=== PATIENT | female | born 1950 | race Caucasian/White ===

== ENCOUNTER 2023-03-07 07:00 | Outpatient (CLI) | payer MEDICARE, OTHER | END 2023-03-07 23:59 | disposition home or self-care (01) | LOC: LAB.S 07:00 | PROVIDERS: ATTEND Physician Assistant Medical | DX: N39.0 Urinary tract infection, site not specified (principal) | CPT/HCPCS: 87086 ==

== ENCOUNTER 2023-03-13 21:25 | Emergency (ER) | payer MEDICARE ==
--- NOTE | 2023-03-13 22:03 | ED Physician Documentation ---
History of Present Illness - Stated complaint Stated Complaint: FEM - Chief complaint Chief Complaint: Abd Pain - Additonal information Additional information: With inability to urinate. Has been unable to urinate x1 day. Reports several months history of generalized weakness and numbness for which she has been seen with a doctor at the [facility]. Reports has not followed regularly with her primary care doctor however because "he is too busy". Denies any fever, chills, chest pain, shortness of breath, abdominal pain, back pain,. Review of Systems Constitutional: denies: Fever Eyes: denies: Loss of vision Ears: denies: Loss of hearing Nose: denies: Rhinorrhea / runny nose Throat: denies: Dental pain / toothache Cardiac: denies: Chest pain / pressure Respiratory: denies: Dyspnea GI: denies: Abdominal Pain : reports: Dysuria, Frequency Skin: denies: Rash Musculoskeletal: denies: Neck pain Neurologic: denies: Generalized weakness Psychiatric: denies: Depressed PD PAST MEDICAL HISTORY - Past Medical History Musculoskeletal: Fibromyalgia - Past Surgical History Past Surgical History: No - Present Medications Home Medications: Ambulatory Orders Medication Instructions Recorded Confirmed Amitriptyline [Elavil] 10 mg 04/12/15 04/12/15 Valacyclovir HCl [Valacyclovir] 1,000 mg PO TID #20 tablet 04/12/15 cephALEXin [Cephalexin] 500 mg PO TID #20 tablet 04/12/15 predniSONE [Deltasone] 60 mg PO DAILY 10 Days tablet 04/12/15 - Allergies Allergies/Adverse Reactions: Allergies Allergy/AdvReac Type Severity Reaction Status Date / Time Penicillins Allergy Anaphylaxis Verified 04/12/15 14:21 shellfish derived Allergy Unknown Verified 04/12/15 14:21 - Social History Does the pt smoke?: No Smoking Status: Never smoker Does the pt drink ETOH?: No Does the pt have substance abuse?: No - Immunizations Immunizations are current?: No PD ED PE NORMAL - Vitals Vital signs reviewed: Yes - General General: Alert and oriented X 3, No acute distress - HEENT HEENT: Atraumatic, PERRL - Neck Neck: Supple, no meningeal sign, No JVD - Cardiac Cardiac: RRR, No murmur - Respiratory Respiratory: No respiratory distress - Abdomen Abdomen: Normal bowel sounds, Soft - Female Female : Deferred - Back Back: No CVA TTP - Neuro Neuro: Alert and oriented X 3, veterans' counselor 2-12 intact, No motor deficit, No sensory deficit, Normal speech - Psych Psych: Other (Labile affect) Results - Vitals Vitals: Vital Signs - 24 hr 03/13/23 03/13/23 21:51 23:53 Temperature 36.4 C L Heart Rate 83 74 Respiratory 18 16 Rate Blood Pressure 193/103 H 195/85 H O2 Saturation 95 100 Oxygen O2 Source Room air - Labs Labs: Laboratory Tests 03/13/23 03/13/23 03/13/23 22:11 22:11 22:11 WBC 6.7 RBC 5.28 Hgb 14.2 Hct 43.4 MCV 82.2 MCH 26.9 L MCHC 32.7 RDW 13.3 Plt Count 350 MPV 9.4 Neut # (Auto) 3.9 Lymph # (Auto) 2.2 [place] # (Auto) 0.5 Eos # (Auto) 0.1 Baso # (Auto) 0.1 Absolute Nucleated RBC 0.00 Nucleated RBC % 0.0 ESR 1 Sodium 140 Potassium 3.5 Chloride 106 Carbon Dioxide 25 Anion Gap 9.0 BUN 11 Creatinine 0.7 Estimated GFR (MDRD) 82 L Glucose 103 H Calcium 9.1 Total Bilirubin 0.6 AST 20 ALT 15 Alkaline Phosphatase 61 Total Protein 7.5 Albumin 4.4 Globulin 3.1 Albumin/Globulin Ratio 1.4 Lipase 33 Urine Color Urine Clarity Urine pH Ur Specific [place] Urine Protein Urine Glucose (UA) Urine Ketones Urine Occult Blood Urine Nitrite Urine Bilirubin Urine Urobilinogen Ur Leukocyte Esterase Ur Microscopic Review Urine Culture Comments 03/13/23 23:51 WBC RBC Hgb Hct MCV MCH MCHC RDW Plt Count MPV Neut # (Auto) Lymph # (Auto) [place] # (Auto) Eos # (Auto) Baso # (Auto) Absolute Nucleated RBC Nucleated RBC % ESR Sodium Potassium Chloride Carbon Dioxide Anion Gap BUN Creatinine Estimated GFR (MDRD) Glucose Calcium Total Bilirubin AST ALT Alkaline Phosphatase Total Protein Albumin Globulin Albumin/Globulin Ratio Lipase Urine Color YELLOW Urine Clarity CLEAR Urine pH 6.0 Ur Specific [place] 1.010 Urine Protein NEGATIVE Urine Glucose (UA) NEGATIVE Urine Ketones 15 H Urine Occult Blood NEGATIVE Urine Nitrite NEGATIVE Urine Bilirubin NEGATIVE Urine Urobilinogen 0.2 (NORMAL) Ur Leukocyte Esterase NEGATIVE Ur Microscopic Review NOT INDICATED Urine Culture Comments NOT INDICATED PD Medical Decision Making - ED course Complexity details: reviewed old records, reviewed results, re-evaluated patient, considered differential, d/w patient, d/w family ED course: Patient 72-year-old female presenting to the emergency department with painful urination and total body numbness. Afebrile, he medically stable on arrival to the emergency department. Benign abdominal exam with no suprapubic tenderness. Initial bladder scan demonstrates approximately 200 cc. Labs obtained all generally within normal limits or nonactionable. CT head is considered although patient does not have any focal or lateralizing neurologic deficits. Atypical demyelinating processes are considered given the patient's total body numbness however she reports that this has been ongoing for several months and is unchanged without any a sending or descending weakness that would be of concern for things such as Charles Salgado variant Guillain-Bacon. ESR negative. Patient was given a liter of IV hydration and was escorted to the bathroom by nursing staff. She was reportedly able to urinate however upon returning to her room she complained excessively of feeling as though her bladder was immediately full again. On reevaluation she was demonstrating some signs of confusion about how she had gotten into the emergency department and whom she had seen so far however she remained alert and orientated to person place and time. At her request Cates catheter was placed however she immediately began to complain of severe bladder pain and demanded its removal. I had a discussion with the patient's who is present at bedside. He reports that she has been experiencing Similar symptoms for several months. He did report periodic episodes of confusion at home. This is consistent with dementia with behavioral disturbance. Patient and patient's were offered boarding here in the emergency department for discussion with social work however patient adamantly refused this and reported that he felt comfortable going home stating that that was a safe environment with which she was familiar and that he would follow-up with her primary care doctor. She was encouraged to return for any new or worsening symptoms. Departure - Departure Disposition: 01 Home, Self Care Clinical Impression: Dysuria Altered mental status Qualifiers: Altered mental status type: unspecified Qualified Code(s): R41.82 - Altered mental status, unspecified Comments: Thank you for allowing us to care for you today at [facility]. Today in the emergency department your evaluated for any possible life- threatening medical emergency. The testing performed in the emergency department today including her blood work and urine analysis was reassuring. At your request we provided with a Cates catheter however you were intolerant to this and we took this out also at your request. I am concerned because you do appear to be demonstrating some symptoms concerning for dementia as with behavioral disturbance. You were offered hospitalization which you have adamantly refused. I want you to follow-up with your primary care doctor soon as possible concerning the symptoms. Please return to the emergency department for new or worsening symptoms.
[2023-03-13 22:16] LABS: BASOPHILS # (AUTO) 0.1 10^3/uL (0.0-0.1); EOSINOPHILS # (AUTO) 0.1 10^3/uL (0.0-0.7); EOSINOPHILS % (AUTO) 1.3 %; HCT - HEMATOCRIT 43.4 % (37.0-47.0); HGB - HEMOGLOBIN 14.2 g/dL (12.0-16.0); LYMPHOCYTES # (AUTO) 2.2 10^3/uL (1.5-3.5); LYMPHOCYTES % (AUTO) 32.2 %; MEAN CORPUSCULAR HEMOGLOBIN 26.9 pg (27.0-31.0); MEAN CORPUSCULAR HGB CONC 32.7 g/dL (32.0-36.0); MEAN CORPUSCULAR VOLUME 82.2 fL (81.0-99.0); MEAN PLATELET VOLUME 9.4 fL (7.9-10.8); MONOCYTES # (AUTO) 0.5 10^3/uL (0.0-1.0); MONOCYTES % (AUTO) 7.3 %; NEUTROPHILS # (AUTO) 3.9 10^3/uL (1.5-6.6); NEUTROPHILS % (AUTO) 57.9 %; PLT - PLATELET COUNT 350 10^3/uL (130-450); RED BLOOD COUNT 5.28 10^6/uL (4.20-5.40); RED CELL DISTRIBUTION WIDTH 13.3 % (12.0-15.0); WHITE BLOOD COUNT 6.7 x10^3/uL (4.8-10.8)
[2023-03-13] MEDS ORDERED: SODIUM CHLORIDE 0.9% 1,000 ML IV STA (22:16)
[2023-03-13 22:27] LABS: ALBUMIN 4.4 g/dL (3.2-5.5); ALBUMIN/GLOBULIN RATIO 1.4 (1.0-2.2); BILIRUBIN,TOTAL 0.6 mg/dL (0.2-1.0); CALCIUM 9.1 mg/dL (8.5-10.3); CREATININE 0.7 mg/dL (0.4-1.0); POTASSIUM 3.5 mmol/L (3.5-5.0); TOTAL PROTEIN 7.5 g/dL (6.7-8.2)
[2023-03-14 00:01] VITALS: BP 195/85
[2023-03-14 00:19] LABS: BILIRUBIN,URINE NEGATIVE (NEGATIVE); GLUCOSE, URINE (UA) NEGATIVE (NEGATIVE); KETONES,URINE (UA) 15 mg/dL (NEGATIVE); LEUKOCYTE ESTERASE, URINE NEGATIVE (NEGATIVE); NITRITE,URINE NEGATIVE (NEGATIVE); OCCULT BLOOD,URINE NEGATIVE (NEGATIVE); PROTEIN,URINE NEGATIVE (NEGATIVE); UROBILINOGEN,URINE 0.2 (NORMAL) E.U./dL (NORMAL)
[2023-03-14 00:20] LABS: CLARITY,URINE CLEAR (CLEAR)
== END 2023-03-14 00:52 | disposition home or self-care (01) ==
LOC: ED 21:25
DX: R30.0 Dysuria (principal); R41.82 Altered mental status, unspecified
CPT/HCPCS: 36415; 51702; 51798; 80053; 81001; 81003; 83690; 85025; 85651; 87086; 99283

== ENCOUNTER 2023-04-02 20:36 | Emergency (ER) | payer MEDICARE ==
--- NOTE | 2023-04-02 20:58 | ED Physician Documentation ---
History of Present Illness - Stated complaint Stated Complaint: FEMALE - Chief complaint Chief Complaint: General - History obtained from History obtained from: Patient - Additonal information Additional information: 72-year-old woman with mild dementia has a uterine prolapse and has intermittent trouble with urinary retention. She is here because she cannot pee. She was seen by my partner, Dr. Montenegro 11 days ago for similar complaint and a Cates was placed. Its not clear why the Cates is not in now. PD PAST MEDICAL HISTORY - Past Medical History Cardiovascular: Hypertension Neuro: Dementia Musculoskeletal: Fibromyalgia - Past Surgical History Past Surgical History: No - Present Medications Home Medications: Ambulatory Orders Medication Instructions Recorded Confirmed Amitriptyline [Elavil] 10 mg 04/12/15 04/12/15 Valacyclovir HCl [Valacyclovir] 1,000 mg PO TID #20 tablet 04/12/15 cephALEXin [Cephalexin] 500 mg PO TID #20 tablet 04/12/15 predniSONE [Deltasone] 60 mg PO DAILY 10 Days tablet 04/12/15 - Allergies Allergies/Adverse Reactions: Allergies Allergy/AdvReac Type Severity Reaction Status Date / Time Penicillins Allergy Anaphylaxis Verified 03/22/23 22:26 shellfish derived Allergy Unknown Verified 03/22/23 22:26 - Social History Does the pt smoke?: No Smoking Status: Never smoker Does the pt drink ETOH?: No Does the pt have substance abuse?: No - Immunizations Immunizations are current?: No - POLST Patient has POLST: No PD ED PE NORMAL - Vitals Vital signs reviewed: Yes - General General: Other (She is alert and oriented to person and place but not date. Some short-term memory difficulties.) - Abdomen Abdomen: Normal bowel sounds, Soft, Non tender Results - Vitals Vitals: Vital Signs - 24 hr 04/02/23 20:37 Temperature 36.5 C Heart Rate 91 Respiratory 19 Rate Blood Pressure 164/90 H O2 Saturation 100 Oxygen O2 Source Room air PD Medical Decision Making - ED course ED course: Independent history from the who is her main caregiver. She pulled out the catheter herself. They tried getting the supplies for self cathing but just could not get the hang of it. A Cates was placed with good urine output. Departure - Departure Disposition: 01 Home, Self Care Clinical Impression: Acute urinary retention Condition: Good Record reviewed to determine appropriate education?: Yes Instructions: ED Catheter Care Cates Comments: Do not pull the catheter out. Follow-up as you are already planning with both your primary and your specialist at [facility].
[2023-04-02 22:06] VITALS: BP 158/82
== END 2023-04-02 22:01 | disposition home or self-care (01) ==
LOC: ED 20:36
DX: R33.9 Retention of urine, unspecified (principal); N81.4 Uterovaginal prolapse, unspecified; F03.90 Unspecified dementia, unspecified severity, without behavioral disturbance, psychotic disturbance, mood disturbance, and anxiety; I10 Essential (primary) hypertension; Z79.899 Other long term (current) drug therapy
CPT/HCPCS: 36415; 51702; 51798; 80048; 99283

== ENCOUNTER 2023-04-03 04:41 | Outpatient (CLI) | payer MEDICARE | END 2023-04-03 23:59 | disposition critical access hospital (66) | LOC: EMS 04:41 | DX: T83.84XA Pain due to genitourinary prosthetic devices, implants and grafts, initial encounter (principal) | CPT/HCPCS: A0425; A0429 ==

== ENCOUNTER 2023-04-03 05:21 | Emergency (ER) | payer MEDICARE ==
--- NOTE | 2023-04-03 05:31 | ED Physician Documentation ---
History of Present Illness - Stated complaint Stated Complaint: CATHETER DISPLACEMENT - History obtained from History obtained from: Patient - Additonal information Additional information: 72yF with pmh dementia, uterine prolapse, urinary retention over the past month with 4 ed visits for this, presents requesting we remove her everett catheter placed yesterday evening. she states it's too uncomfortable. denies other symptoms PD PAST MEDICAL HISTORY - Past Medical History Cardiovascular: Hypertension Neuro: Dementia Musculoskeletal: Fibromyalgia - Past Surgical History Past Surgical History: No - Present Medications Home Medications: Ambulatory Orders Medication Instructions Recorded Confirmed Amitriptyline [Elavil] 10 mg 04/12/15 04/12/15 Valacyclovir HCl [Valacyclovir] 1,000 mg PO TID #20 tablet 04/12/15 cephALEXin [Cephalexin] 500 mg PO TID #20 tablet 04/12/15 predniSONE [Deltasone] 60 mg PO DAILY 10 Days tablet 04/12/15 - Allergies Allergies/Adverse Reactions: Allergies Allergy/AdvReac Type Severity Reaction Status Date / Time Penicillins Allergy Anaphylaxis Verified 03/22/23 22:26 shellfish derived Allergy Unknown Verified 03/22/23 22:26 - Social History Does the pt smoke?: No Smoking Status: Never smoker Does the pt drink ETOH?: No Does the pt have substance abuse?: No - Immunizations Immunizations are current?: No - POLST Patient has POLST: No PD ED PE NORMAL - Vitals Vital signs reviewed: Yes - General General: No acute distress, Well developed/nourished, Other (alert and oriented) - HEENT HEENT: Atraumatic, PERRL, EOMI - Abdomen Abdomen: Non tender, Non distended - Female Female : Other (everett catheter in place with straw colored urine in bag) - Derm Derm: Normal color, Warm and dry Results - Vitals Vitals: Oxygen O2 Source Room air PD Medical Decision Making - ED course ED course: 72yF presents for the fourth time this month due to urinary issues, requesting removal of everett catheter. We explained that she may be unable to void properly without it and she understands and is insistent it be removed. She will f/u with pcp for self cath education and materials and I also recommend urology or urogynecology. return precautions given. Departure - Departure Disposition: Home, Self Care Clinical Impression: Everett catheter problem Condition: Stable Instructions: ED Retention Urinary Female Follow-Up: Jacinta Stephens MD [Physician No Access] - Comments: You were seen in the ED for removal of your everett catheter. If you are unable to urinate properly when you return home then you will need to have a new everett placed. This is important because you can have damage to your kidneys with urinary retention. Please follow up with your primary care provider for self cath materials and education. A referral to urology has been provided.
[2023-04-03 06:20] VITALS: BP 170/94
== END 2023-04-03 05:42 | disposition home or self-care (01) ==
LOC: EDUNIT# → ED 05:21
DX: Z46.6 Encounter for fitting and adjustment of urinary device (principal); I10 Essential (primary) hypertension; F03.90 Unspecified dementia, unspecified severity, without behavioral disturbance, psychotic disturbance, mood disturbance, and anxiety
CPT/HCPCS: 99281; 99282

== ENCOUNTER 2023-04-09 07:00 | Outpatient (CLI) | payer MEDICARE ==
[2023-04-09 20:49] LABS: BILIRUBIN,URINE NEGATIVE (NEGATIVE); GLUCOSE, URINE (UA) NEGATIVE (NEGATIVE); KETONES,URINE (UA) NEGATIVE (NEGATIVE); LEUKOCYTE ESTERASE, URINE NEGATIVE (NEGATIVE); NITRITE,URINE NEGATIVE (NEGATIVE); OCCULT BLOOD,URINE TRACE-INTA (NEGATIVE); PROTEIN,URINE NEGATIVE (NEGATIVE); UROBILINOGEN,URINE 0.2 (NORMAL) E.U./dL (NORMAL)
[2023-04-09 20:53] LABS: CLARITY,URINE CLEAR (CLEAR)
[2023-04-09 21:08] LABS: BACTERIA,URINE Few /HPF (None Seen); RBC,URINE 0-5 /HPF (0-5); SQUAMOUS EPITHELIAL CELL,UR FEW Squamous (<= Few)
== END 2023-04-09 23:59 | disposition home or self-care (01) ==
LOC: LAB.S 07:00
PROVIDERS: ATTEND Emergency Medicine
DX: R33.9 Retention of urine, unspecified (principal)
CPT/HCPCS: 81001; 87086

== ENCOUNTER 2023-04-14 19:51 | Outpatient (CLI) | payer MEDICARE | END 2023-04-14 19:52 | disposition short-term general hospital (02) | LOC: EMS 19:51 | DX: N93.9 Abnormal uterine and vaginal bleeding, unspecified (principal); N81.4 Uterovaginal prolapse, unspecified; R10.31 Right lower quadrant pain; R10.32 Left lower quadrant pain; R42 Dizziness and giddiness; R20.0 Anesthesia of skin; R55 Syncope and collapse | CPT/HCPCS: A0425; A0429 ==

== ENCOUNTER 2023-05-02 18:30 | Emergency (ER) | payer MEDICARE ==
--- NOTE | 2023-05-02 19:31 | ED Physician Documentation ---
PD HPI ABD PAIN - Stated complaint Stated Complaint: - Chief complaint Chief Complaint: Abd Pain - History obtained from History obtained from: Patient - Additional information Additional information: 72-year-old with dementia presents with abdominal pain and inability to urinate. Review of the chart shows that she has a history of pelvic organ prolapse and has recurrent urinary retention. She has somewhat frequent visits related to same. She is quite demented and her is not available on initial evaluation, I am told he is in the waiting room and I have asked him to come back. PD PAST MEDICAL HISTORY - Past Medical History Cardiovascular: Hypertension Neuro: Dementia Musculoskeletal: Fibromyalgia - Past Surgical History Past Surgical History: No - Present Medications Home Medications: Ambulatory Orders Medication Instructions Recorded Confirmed Amitriptyline [Elavil] 10 mg 04/12/15 04/12/15 Valacyclovir HCl [Valacyclovir] 1,000 mg PO TID #20 tablet 04/12/15 cephALEXin [Cephalexin] 500 mg PO TID #20 tablet 04/12/15 predniSONE [Deltasone] 60 mg PO DAILY 10 Days tablet 04/12/15 Tamsulosin [Flomax] 0.4 mg PO DAILY #14 cap 04/18/23 - Allergies Allergies/Adverse Reactions: Allergies Allergy/AdvReac Type Severity Reaction Status Date / Time Penicillins Allergy Anaphylaxis Verified 05/02/23 18:40 shellfish derived Allergy Unknown Verified 05/02/23 18:40 - Social History Does the pt smoke?: No Smoking Status: Never smoker Does the pt drink ETOH?: No Does the pt have substance abuse?: No - Immunizations Immunizations are current?: No - POLST Patient has POLST: No PD ED PE NORMAL - Vitals Vital signs reviewed: Yes - General General: No acute distress, Other (She is alert but clearly demented with poor short-term memory. She is also anxious.) - Abdomen Abdomen: Normal bowel sounds, Soft, Non tender - Extremities Extremities: No edema, No calf tenderness / cord - Neuro Eye Opening: Spontaneous Motor: Obeys Commands Verbal: Confused GCS Score: 14 Results - Vitals Vitals: Vital Signs - 24 hr 05/02/23 05/02/23 18:40 20:15 Temperature 36.5 C Heart Rate 78 64 Respiratory 16 15 Rate Blood Pressure 141/78 H 150/75 H O2 Saturation 95 95 Oxygen O2 Source Room air - Labs Labs: Laboratory Tests 05/02/23 05/02/23 19:46 19:46 WBC 9.3 RBC 5.00 Hgb 13.3 Hct 42.0 MCV 84.0 MCH 26.6 L MCHC 31.7 L RDW 14.1 Plt Count 344 MPV 10.0 Neut # (Auto) 5.6 Lymph # (Auto) 2.4 [place] # (Auto) 0.9 Eos # (Auto) 0.3 Baso # (Auto) 0.1 Absolute Nucleated RBC 0.00 Nucleated RBC % 0.0 Sodium 141 Potassium 3.3 L Chloride 106 Carbon Dioxide 30 Anion Gap 5.0 L BUN 12 Creatinine 0.7 Estimated GFR (MDRD) 82 L Glucose 108 H Calcium 9.4 Total Bilirubin 0.3 AST 14 ALT 11 Alkaline Phosphatase 52 Total Protein 6.2 L Albumin 4.0 Globulin 2.2 Albumin/Globulin Ratio 1.8 - Rads (name of study) CT abdomen pelvis Relevant Findings:: Final report received, EMP independent interpretation of test PD Medical Decision Making - ED course ED course: I brought the into the room. She has been losing weight and started to have this concern about cancer over the last few weeks. Based on the fact that she has been losing weight and lumps in her belly. She has not had imaging yet. 72-year-old with dementia is very worried about having an intra-abdominal cancer. She does have recurrent urinary retention and a Cates was placed and that did help, but to allay her fears especially given her advanced age and weight loss a CT was done with no evidence of malignancy. CBC, CMP grossly normal. Departure - Departure Disposition: 01 Home, Self Care Clinical Impression: Fear of having malignant neoplasm of digestive system, Acute urinary retention, Weight loss Condition: Good Record reviewed to determine appropriate education?: Yes Instructions: ED Catheter Care Cates Comments: Rest assured there is no sign of cancer or other serious abdominal process or mass on your CAT scan. Follow-up with your primary care physician, next a vailable appointment. Return for new or worsening symptoms. Forms: PCP List
[2023-05-02 20:06] LABS: BASOPHILS # (AUTO) 0.1 10^3/uL (0.0-0.1); BASOPHILS % (AUTO) 0.9 %; EOSINOPHILS # (AUTO) 0.3 10^3/uL (0.0-0.7); EOSINOPHILS % (AUTO) 2.8 %; HGB - HEMOGLOBIN 13.3 g/dL (12.0-16.0); LYMPHOCYTES # (AUTO) 2.4 10^3/uL (1.5-3.5); LYMPHOCYTES % (AUTO) 26.2 %; MEAN CORPUSCULAR HEMOGLOBIN 26.6 pg (27.0-31.0); MEAN CORPUSCULAR HGB CONC 31.7 g/dL (32.0-36.0); MONOCYTES # (AUTO) 0.9 10^3/uL (0.0-1.0); MONOCYTES % (AUTO) 9.3 %; NEUTROPHILS # (AUTO) 5.6 10^3/uL (1.5-6.6); NEUTROPHILS % (AUTO) 60.6 %; PLT - PLATELET COUNT 344 10^3/uL (130-450); RED CELL DISTRIBUTION WIDTH 14.1 % (12.0-15.0); WHITE BLOOD COUNT 9.3 x10^3/uL (4.8-10.8)
[2023-05-02 20:21] LABS: ALBUMIN/GLOBULIN RATIO 1.8 (1.0-2.2); BILIRUBIN,TOTAL 0.3 mg/dL (0.2-1.0); CALCIUM 9.4 mg/dL (8.5-10.3); CREATININE 0.7 mg/dL (0.6-1.3); POTASSIUM 3.3 mmol/L (3.5-4.5); TOTAL PROTEIN 6.2 g/dL (6.4-8.9)
[2023-05-02] MEDS ORDERED: iohexoL-300 100 ML VIAL IVP ONE (21:29)
--- NOTE | 2023-05-02 21:43 | CT Report ---
PROCEDURE: ABDOMEN/PELVIS W INDICATIONS: IV only, abd bloat CONTRAST: 100 ML OMNI 300 TECHNIQUE: After the administration of intravenous contrast, 5 mm thick sections acquired from the diaphragms to the symphysis. 5 mm thick coronal and sagittal reformats were acquired. For radiation dose reducti on, the following was used: automated exposure control, adjustment of mA and/or kV according to tobin ent size. COMPARISON: None FINDINGS: Image quality: Excellent. Lung bases and heart: Mild cardiomegaly with left ventricular and left atrial enlargement. No pericar dial effusion identified. Lung bases are clear. Liver: No solid mass. Gallbladder and biliary tree: No radiopaque stones or wall thickening. No biliary dilation. Spleen: No splenomegaly. Pancreas: No pancreatic ductal dilation. Adrenals: No adrenal nodule. Kidneys and ureters: No hydronephrosis. No renal cystic lesion which requires follow up. No solid mas s. Bowel and peritoneum: No bowel distension. No pathologic free fluid. Lymph nodes: No central or retroperitoneal adenopathy. Vessels: No infrarenal aortic aneurysm. PELVIS Reproductive organs: Unremarkable. Bladder: There is a Cates catheter present in the bladder. There is extensive air present in the blad julita, presumably secondary to Cates catheter placement. The bladder has a thin wall. Pelvic lymph nodes: No pelvic adenopathy by size criteria. Bones: No aggressive osseous abnormality. Other: No significant ventral or inguinal hernia. IMPRESSION: 1. A Cates catheter is present in the bladder. Extensive air in the bladder is presumed secondary to Cates catheter placement. The bladder has a thin wall. 2. No other findings suspicious for acute abdominal process. 3. Mild cardiomegaly. Reviewed by: Javier Em MD on 05/02/2023 9:42 PM PDT Approved by: Javier Em MD on 05/02/2023 9:42 PM PDT Station ID: [id number]
[2023-05-02 22:04] VITALS: BP 164/85; O2SAT 98
== END 2023-05-02 22:11 | disposition home or self-care (01) ==
LOC: ED 18:30
DX: R33.9 Retention of urine, unspecified (principal); R63.4 Abnormal weight loss; F03.90 Unspecified dementia, unspecified severity, without behavioral disturbance, psychotic disturbance, mood disturbance, and anxiety; I10 Essential (primary) hypertension; Z79.899 Other long term (current) drug therapy
CPT/HCPCS: 36415; 51702; 74177; 80053; 85025; 99283; 99284; Q9967

== ENCOUNTER 2023-05-11 14:54 | Emergency (ER) | payer MEDICARE ==
[2023-05-11 15:05] VITALS: O2SAT 98
--- NOTE | 2023-05-11 16:01 | ED Physician Documentation ---
PD HPI ABD PAIN - Stated complaint Stated Complaint: ,DIZZINESS - Chief complaint Chief Complaint: Abd Pain - History obtained from History obtained from: Patient PD PAST MEDICAL HISTORY - Past Medical History Past Medical History: Yes Cardiovascular: Hypertension Neuro: Dementia Musculoskeletal: Fibromyalgia - Past Surgical History Past Surgical History: No - Present Medications Home Medications: Ambulatory Orders Medication Instructions Recorded Confirmed Amitriptyline [Elavil] 10 mg 04/12/15 04/12/15 Valacyclovir HCl [Valacyclovir] 1,000 mg PO TID #20 tablet 04/12/15 cephALEXin [Cephalexin] 500 mg PO TID #20 tablet 04/12/15 predniSONE [Deltasone] 60 mg PO DAILY 10 Days tablet 04/12/15 Tamsulosin [Flomax] 0.4 mg PO DAILY #14 cap 04/18/23 Phenazopyridine HCl [Pyridium] 100 mg PO TID PRN #15 tablet 05/11/23 - Allergies Allergies/Adverse Reactions: Allergies Allergy/AdvReac Type Severity Reaction Status Date / Time Penicillins Allergy Anaphylaxis Verified 05/11/23 14:59 shellfish derived Allergy Unknown Verified 05/11/23 14:59 - Social History Does the pt smoke?: No Smoking Status: Never smoker Does the pt drink ETOH?: No Does the pt have substance abuse?: No - Immunizations Immunizations are current?: No - POLST Patient has POLST: No Results - Vitals Vitals: Vital Signs - 24 hr 05/11/23 05/11/23 14:59 17:05 Temperature 36.5 C Heart Rate 80 78 Respiratory 16 16 Rate Blood Pressure 128/78 128/75 O2 Saturation 98 98 Oxygen O2 Source Room air - Labs Labs: Laboratory Tests 05/11/23 16:48 Urine Color YELLOW Urine Clarity HAZY Urine pH 6.0 Ur Specific [place] <=1.005 Urine Protein NEGATIVE Urine Glucose (UA) NEGATIVE Urine Ketones NEGATIVE Urine Occult Blood SMALL H Urine Nitrite NEGATIVE Urine Bilirubin NEGATIVE Urine Urobilinogen 0.2 (NORMAL) Ur Leukocyte Esterase SMALL H Urine RBC 0-5 Urine WBC 4-5 Ur Squamous Epith Cells NONE SEEN Urine Bacteria Rare Ur Microscopic Review INDICATED Urine Culture Comments INDICATED PD Medical Decision Making - ED course Complexity details: considered differential (she states she is having unusual lower abd bladder area pin as well as outer periurethral after adjusting the everett catheter in and out (she says it seemed "too long" and so pushed some back into bladder. She is concerned about created infection. ), d/w patient ED course: ED nursing changed her everett as she was concerned about created infection when pushed everett further into bladder. Per nursing, no external rash nor sores/redness. Everett changed out with concern of being infected and to help patient be calmer about it (anxious she did "something wrong"). I think she just created some urethral irritation with the adjusting of it several times. I discusssed with her the length of the everett out is appropriate as the everett cannot be "cut to size" as she was requesting. Has had penitentiary everett, so it seems unusual that she was hving this perception of it. It appears in proper postion and leg back has clear appearing urine. Everett changed to new one by nursing and is draining fine. This helped patient be less anxious about the manipulation she had done as possible created infection. No apparent infection though on UA. Cant ry anti-inflammatories and Pyridium for symptoms. Nursing said no external lesions/rash/sores when changed everett. Departure - Departure Disposition: 01 Home, Self Care Clinical Impression: Dysuria, Urinary catheter insertion/adjustment/removal Condition: Stable Record reviewed to determine appropriate education?: Yes Prescriptions: Phenazopyridine HCl [Pyridium] 100 mg PO TID PRN #15 tablet PRN Reason: Abdominal Pain Comments: Your urine does not look obviously infected by the urine test. We will do a culture and see if that results differently. At this point I believe the discomfort is from irritation of the urethra from movement of the tubing. We can try phenazopyridine and see if that helps with some of the urinary discomfort in the bladder and urethra. It will turn your urine will orange- colored and so not to be concerned. Meanwhile some Tylenol 4 times daily may help with some of the discomfort as well. The Everett catheter was replaced here show his fresh and clean. Leave it in the position that it is. It is common for there to be some extension of the catheter out externally as it is long enough that it would not all be within the bladder. I sent a prescription to your preferred pharmacy. Forms: PCP List Discharge Date/Time: 05/11/23 17:15
[2023-05-11] MEDS ORDERED: ACETAMINOPHEN 325 MG TABLET PO STA (16:15)
[2023-05-11] MEDS ORDERED: PHENAZOPYRIDINE 100 MG TABLET PO STA (16:52)
[2023-05-11 16:57] LABS: BILIRUBIN,URINE NEGATIVE (NEGATIVE); CLARITY,URINE HAZY (CLEAR); GLUCOSE, URINE (UA) NEGATIVE (NEGATIVE); KETONES,URINE (UA) NEGATIVE (NEGATIVE); LEUKOCYTE ESTERASE, URINE SMALL (NEGATIVE); NITRITE,URINE NEGATIVE (NEGATIVE); OCCULT BLOOD,URINE SMALL (NEGATIVE); PROTEIN,URINE NEGATIVE (NEGATIVE); UROBILINOGEN,URINE 0.2 (NORMAL) E.U./dL (NORMAL)
[2023-05-11 17:06] LABS: BACTERIA,URINE Rare /HPF (None Seen); RBC,URINE 0-5 /HPF (0-5); SQUAMOUS EPITHELIAL CELL,UR NONE SEEN (<= Few)
[2023-05-11 17:07] VITALS: BP 128/75
--- NOTE | 2023-05-14 11:45 | ED Physician Documentation ---
ED Addendum - Addendum Addendum: 05/14/23 11:45 Polymicrobial low-volume growth in a patient with a chronic indwelling Cates more consistent with colonization and her culture from 05/11 is reviewed and I do not think it requires any intervention or antibiotics.
== END 2023-05-11 17:15 | disposition home or self-care (01) ==
LOC: ED 14:54
DX: R30.0 Dysuria (principal); I10 Essential (primary) hypertension; Z79.899 Other long term (current) drug therapy
CPT/HCPCS: 51702; 81001; 87077; 87086; 87181; 99283; A9270; 81003

== ENCOUNTER 2023-05-12 18:15 | Emergency (ER) | payer MEDICARE ==
[2023-05-12 18:31] VITALS: O2SAT 98
--- NOTE | 2023-05-12 18:43 | ED Physician Documentation ---
History of Present Illness - Stated complaint Stated Complaint: CATHETER BROKE - Chief complaint Chief Complaint: General - History obtained from History obtained from: Patient, Family - Additonal information Additional information: 72-year-old with dementia presents by POV with her . She is convinced her catheter is not working. She has a chronic indwelling Cates. Independent history taken from the . She has started some psychiatric medications as she has been having delusions about her catheter and having cancer despite no evidence of that on prior visits. She is going to be seeing a urologist. PD PAST MEDICAL HISTORY - Past Medical History Cardiovascular: Hypertension Neuro: Dementia Musculoskeletal: Fibromyalgia - Past Surgical History Past Surgical History: No - Present Medications Home Medications: Ambulatory Orders Medication Instructions Recorded Confirmed Amitriptyline [Elavil] 10 mg 04/12/15 04/12/15 Valacyclovir HCl [Valacyclovir] 1,000 mg PO TID #20 tablet 04/12/15 cephALEXin [Cephalexin] 500 mg PO TID #20 tablet 04/12/15 predniSONE [Deltasone] 60 mg PO DAILY 10 Days tablet 04/12/15 Tamsulosin [Flomax] 0.4 mg PO DAILY #14 cap 04/18/23 Phenazopyridine HCl [Pyridium] 100 mg PO TID PRN #15 tablet 05/11/23 - Allergies Allergies/Adverse Reactions: Allergies Allergy/AdvReac Type Severity Reaction Status Date / Time Penicillins Allergy Anaphylaxis Verified 05/12/23 18:26 shellfish derived Allergy Unknown Verified 05/12/23 18:26 - Social History Does the pt smoke?: No Smoking Status: Never smoker Does the pt drink ETOH?: No Does the pt have substance abuse?: No - Immunizations Immunizations are current?: No - POLST Patient has POLST: No PD ED PE NORMAL - Vitals Vital signs reviewed: Yes - General General: Other (Anxious but in no distress) - Abdomen Abdomen: Non tender - Female Female : Other (Cates catheter in place, it is draining clear yellow urine. She does need a new StatLock.) Results - Vitals Vitals: Vital Signs - 24 hr 05/12/23 18:26 Temperature 36.8 C Heart Rate 73 Respiratory 16 Rate Blood Pressure 116/74 O2 Saturation 98 Oxygen O2 Source Room air PD Medical Decision Making - ED course ED course: 72-year-old woman concerned about her catheter not working but it seems to be working fine. She did need a new StatLock. Departure - Departure Disposition: 01 Home, Self Care Clinical Impression: Cates catheter problem Qualifiers: Encounter type: initial encounter Qualified Code(s): T83.9XXA - Unspecified complication of genitourinary prosthetic device, implant and graft, initial encounter Condition: Good Record reviewed to determine appropriate education?: Yes Instructions: ED Catheter Care Cates Comments: Your catheter is working okay, follow-up with the urologist as is being planned. Return for new or worsening symptoms.
[2023-05-12 19:07] VITALS: BP 120/71
== END 2023-05-12 19:07 | disposition home or self-care (01) ==
LOC: ED 18:15
DX: T83.091A Other mechanical complication of indwelling urethral catheter, initial encounter (principal)
CPT/HCPCS: 99281; 99283

== ENCOUNTER 2023-05-15 08:47 | Emergency (ER) | payer MEDICARE ==
[2023-05-15 09:08] VITALS: BP 136/85; O2SAT 96
--- NOTE | 2023-05-15 09:44 | ED Physician Documentation ---
History of Present Illness - Stated complaint Stated Complaint: CATH ISSUE - Chief complaint Chief Complaint: General - History obtained from History obtained from: Patient, Family - Additonal information Additional information: The patient is brought to the emergency department by her for chief complaint of catheter malfunction. She states the catheter has been draining fine but the tubing is too long and the bag loop has broken. The patient gives a long and somewhat rambling history of ongoing pelvic pain that is longstanding but seems to be worse since the catheter was put in. She is very unhappy with the catheter but states that she has seen urology and gynecology and they are not willing to do a bladder lift for her at this point in time. states the patient has already had a urinalysis and CT scan this week and that at this point, he just mainly wants to see if the tubing for the catheter can be shortened so that it is not levering at an auto angle. They would also like a bag replacement. The patient denies fevers or chills. No nausea or vomiting. No blood in urine. When she had a urinalysis the other day in [place], the results were not back yet but the patient was started on antibiotics and Pyridium. The patient has some degree of memory loss per her , so most of the history is obtained from him. PD PAST MEDICAL HISTORY - Past Medical History Cardiovascular: Hypertension Neuro: Dementia Musculoskeletal: Fibromyalgia - Past Surgical History Past Surgical History: No - Present Medications Home Medications: Ambulatory Orders Medication Instructions Recorded Confirmed Amitriptyline [Elavil] 10 mg 04/12/15 04/12/15 Valacyclovir HCl [Valacyclovir] 1,000 mg PO TID #20 tablet 04/12/15 cephALEXin [Cephalexin] 500 mg PO TID #20 tablet 04/12/15 predniSONE [Deltasone] 60 mg PO DAILY 10 Days tablet 04/12/15 Tamsulosin [Flomax] 0.4 mg PO DAILY #14 cap 04/18/23 Phenazopyridine HCl [Pyridium] 100 mg PO TID PRN #15 tablet 05/11/23 - Allergies Allergies/Adverse Reactions: Allergies Allergy/AdvReac Type Severity Reaction Status Date / Time Penicillins Allergy Anaphylaxis Verified 05/12/23 18:26 shellfish derived Allergy Unknown Verified 05/12/23 18:26 - Social History Does the pt smoke?: No Smoking Status: Never smoker Does the pt drink ETOH?: No Does the pt have substance abuse?: No - Immunizations Immunizations are current?: No - POLST Patient has POLST: No PD ED PE NORMAL - Vitals Vital signs reviewed: Yes - General General: No acute distress, Well developed/nourished, Other (Alert, answering questions.) - HEENT HEENT: Atraumatic, PERRL, EOMI, Moist mucous membranes - Neck Neck: Supple, no meningeal sign - Cardiac Cardiac: RRR, No murmur, Strong equal pulses - Respiratory Respiratory: No respiratory distress, Clear bilaterally - Abdomen Abdomen: Soft, Non distended, Other (Mild suprapubic and right lower quadrant tenderness, no rebound or guarding.) - Derm Derm: Normal color, Warm and dry, No rash - Extremities Extremities: No deformity - Neuro Neuro: Alert and oriented X 3 - Psych Psych: Normal mood, Normal affect Results - Vitals Vitals: Vital Signs - 24 hr 05/15/23 08:52 Temperature 36.7 C Heart Rate 98 Respiratory 20 Rate Blood Pressure 136/85 H O2 Saturation 96 Oxygen O2 Source Room air PD Medical Decision Making - ED course Complexity details: considered differential, d/w patient, d/w family ED course: Staff did work with the patient and family on a new catheter tubing and bag set up. The patient has already been worked up with any testing that we would do here for her ongoing symptoms at this point, I have deferred to urology and [facility]. No emergent condition identified and patient is stable for discharge home. Departure - Departure Disposition: 01 Home, Self Care Clinical Impression: Cates catheter problem Qualifiers: Encounter type: initial encounter Qualified Code(s): T83.9XXA - Unspecified complication of genitourinary prosthetic device, implant and graft, initial encounter Condition: Stable Instructions: ED Catheter Care Cates Forms: PCP List Discharge Date/Time: 05/15/23 10:09
== END 2023-05-15 10:09 | disposition home or self-care (01) ==
LOC: ED 08:47
DX: T83.9XXA Unspecified complication of genitourinary prosthetic device, implant and graft, initial encounter (principal); I10 Essential (primary) hypertension
CPT/HCPCS: 99281; 99283

== ENCOUNTER 2023-05-20 08:00 | Outpatient (CLI) | payer MEDICARE | END 2023-05-20 23:59 | disposition home or self-care (01) | LOC: LAB.S 08:00 | PROVIDERS: ATTEND Physician Assistant | DX: N34.2 Other urethritis (principal) | CPT/HCPCS: 87086 ==

== ENCOUNTER 2023-10-24 14:20 | Outpatient (CLI) | payer MEDICARE | END 2023-10-24 14:21 | disposition critical access hospital (66) | LOC: EMS 14:20 | DX: R41.0 Disorientation, unspecified (principal); R20.0 Anesthesia of skin; R20.2 Paresthesia of skin; R51.9 Headache, unspecified; R45.89 Other symptoms and signs involving emotional state | CPT/HCPCS: A0425; A0429 ==

== ENCOUNTER 2023-10-24 14:55 | Emergency (ER) | payer MEDICARE ==
[2023-10-24] MEDS: LORazepam 2 MG/ML VIAL IVP STA (15:16)
[2023-10-24 15:18] LABS: BASOPHILS # (AUTO) 0.1 10^3/uL (0.0-0.1); BASOPHILS % (AUTO) 0.6 %; EOSINOPHILS # (AUTO) 0.2 10^3/uL (0.0-0.7); EOSINOPHILS % (AUTO) 1.5 %; HCT - HEMATOCRIT 46.5 % (37.0-47.0); HGB - HEMOGLOBIN 14.6 g/dL (12.0-16.0); LYMPHOCYTES # (AUTO) 2.2 10^3/uL (1.5-3.5); LYMPHOCYTES % (AUTO) 19.1 %; MEAN CORPUSCULAR HGB CONC 31.4 g/dL (32.0-36.0); MEAN CORPUSCULAR VOLUME 82.7 fL (81.0-99.0); MEAN PLATELET VOLUME 9.6 fL (7.9-10.8); MONOCYTES # (AUTO) 0.9 10^3/uL (0.0-1.0); MONOCYTES % (AUTO) 7.7 %; NEUTROPHILS # (AUTO) 8.2 10^3/uL (1.5-6.6); NEUTROPHILS % (AUTO) 70.8 %; PLT - PLATELET COUNT 364 10^3/uL (130-450); RED BLOOD COUNT 5.62 10^6/uL (4.20-5.40); RED CELL DISTRIBUTION WIDTH 13.4 % (12.0-15.0); WHITE BLOOD COUNT 11.5 x10^3/uL (4.8-10.8)
[2023-10-24 15:34] LABS: BILIRUBIN,URINE NEGATIVE (NEGATIVE); GLUCOSE, URINE (UA) NEGATIVE (NEGATIVE); KETONES,URINE (UA) NEGATIVE (NEGATIVE); LEUKOCYTE ESTERASE, URINE TRACE (NEGATIVE); NITRITE,URINE POSITIVE (NEGATIVE); OCCULT BLOOD,URINE NEGATIVE (NEGATIVE); PROTEIN,URINE NEGATIVE (NEGATIVE); UROBILINOGEN,URINE 0.2 (NORMAL) E.U./dL (NORMAL)
[2023-10-24 15:36] LABS: ALBUMIN 4.3 g/dL (3.2-5.5); ALBUMIN/GLOBULIN RATIO 1.7 (1.0-2.2); BILIRUBIN,TOTAL 0.6 mg/dL (0.2-1.0); CALCIUM 9.8 mg/dL (8.5-10.3); CREATININE 0.7 mg/dL (0.6-1.3); POTASSIUM 3.8 mmol/L (3.5-4.5); TOTAL PROTEIN 6.8 g/dL (6.4-8.9)
--- NOTE | 2023-10-24 15:42 | CT Report ---
PROCEDURE: Head WO INDICATIONS: headache, numbness, hypertension TECHNIQUE: Noncontrast 4.5 mm thick angled axial sections acquired from the foramen magnum to the vertex. For r adiation dose reduction, the following was used: automated exposure control, adjustment of mA and/or kV according to patient size. COMPARISON: 04/12/2015 FINDINGS: Image quality: Excellent. CSF spaces: Basal cisterns are patent. No extra-axial fluid collections. Ventricles are normal in size and shape. Brain: No midline shift. No intracranial masses or hemorrhage. Acevedo-white matter interface is norm al. Skull and face: Calvarium and visualized facial bones are intact, without suspicious lesions. Sinuses: Visualized sinuses and mastoids are clear. IMPRESSION: No acute intracranial pathology. Reviewed by: Alber Harden MD on 10/24/2023 2:41 PM [place] Approved by: Alber Harden MD on 10/24/2023 2:41 PM [facility] Station ID: [id number]
[2023-10-24 15:44] LABS: CLARITY,URINE HAZY (CLEAR)
[2023-10-24 15:45] LABS: BACTERIA,URINE Many /HPF (None Seen); CRYSTALS,URINE 0-2 Calcium Oxalate /LPF; EPITHELIAL CELLS,UR FEW Transitional /HPF (<= Few); RBC,URINE 0-5 /HPF (0-5); SQUAMOUS EPITHELIAL CELL,UR FEW Squamous (<= Few)
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
[2023-10-24] MEDS: SODIUM CHLORIDE 0.9% 1,000 ML IV STA ×2 (16:09→17:29)
[2023-10-24] MEDS: cefTRIAXone 1 GM in SODIUM CHLORIDE 0.9% MINIBAG 100 ML IV STA (16:15)
[2023-10-24 18:08] VITALS: BP 126/71; O2SAT 97
== END 2023-10-24 18:15 | disposition home or self-care (01) ==
LOC: EDUNIT# → ED 14:55
DX: E86.0 Dehydration (principal); N30.00 Acute cystitis without hematuria; R41.0 Disorientation, unspecified; I10 Essential (primary) hypertension; F03.90 Unspecified dementia, unspecified severity, without behavioral disturbance, psychotic disturbance, mood disturbance, and anxiety; M79.7 Fibromyalgia; Z79.899 Other long term (current) drug therapy
CPT/HCPCS: 36415; 70450; 80053; 81001; 83690; 85025; 87086; 87181; 96361; 96365; 96375; 99284; J2060; 81003

== ENCOUNTER 2024-01-29 19:12 | Outpatient (CLI) | payer MEDICARE | END 2024-01-29 23:59 | disposition EMS.NT | LOC: EMS 19:12 | DX: R45.89 Other symptoms and signs involving emotional state (principal); R52 Pain, unspecified; R41.0 Disorientation, unspecified ==

== ENCOUNTER 2024-03-24 16:11 | Outpatient (CLI) | payer MEDICARE | END 2024-03-24 16:12 | disposition EMS.NT | LOC: EMS 16:11 | DX: R20.0 Anesthesia of skin (principal); R20.2 Paresthesia of skin ==

== ENCOUNTER 2024-03-29 20:41 | Emergency (ER) | payer MEDICARE ==
[2024-03-29 21:26] VITALS: BP 155/90; O2SAT 98
[2024-03-29 22:56] LABS: BASOPHILS # (AUTO) 0.1 10^3/uL (0.0-0.1); BASOPHILS % (AUTO) 0.6 %; EOSINOPHILS # (AUTO) 0.1 10^3/uL (0.0-0.7); EOSINOPHILS % (AUTO) 1.4 %; HCT - HEMATOCRIT 44.9 % (37.0-47.0); HGB - HEMOGLOBIN 14.1 g/dL (12.0-16.0); LYMPHOCYTES # (AUTO) 2.5 10^3/uL (1.5-3.5); LYMPHOCYTES % (AUTO) 25.7 %; MEAN CORPUSCULAR HEMOGLOBIN 26.4 pg (27.0-31.0); MEAN CORPUSCULAR HGB CONC 31.4 g/dL (32.0-36.0); MEAN CORPUSCULAR VOLUME 84.1 fL (81.0-99.0); MEAN PLATELET VOLUME 10.2 fL (7.9-10.8); MONOCYTES # (AUTO) 0.8 10^3/uL (0.0-1.0); MONOCYTES % (AUTO) 8.5 %; NEUTROPHILS # (AUTO) 6.3 10^3/uL (1.5-6.6); NEUTROPHILS % (AUTO) 63.6 %; PLT - PLATELET COUNT 369 10^3/uL (130-450); RED BLOOD COUNT 5.34 10^6/uL (4.20-5.40); RED CELL DISTRIBUTION WIDTH 13.2 % (12.0-15.0); WHITE BLOOD COUNT 9.9 x10^3/uL (4.8-10.8)
[2024-03-29 22:59] LABS: BILIRUBIN,URINE NEGATIVE (NEGATIVE); GLUCOSE, URINE (UA) NEGATIVE (NEGATIVE); KETONES,URINE (UA) TRACE mg/dL (NEGATIVE); LEUKOCYTE ESTERASE, URINE SMALL (NEGATIVE); NITRITE,URINE POSITIVE (NEGATIVE); OCCULT BLOOD,URINE NEGATIVE (NEGATIVE); PROTEIN,URINE NEGATIVE (NEGATIVE); UROBILINOGEN,URINE 0.2 (NORMAL) E.U./dL (NORMAL)
[2024-03-29 23:00] LABS: CLARITY,URINE HAZY (CLEAR)
[2024-03-29 23:05] LABS: BACTERIA,URINE Many /HPF (None Seen); RBC,URINE 0-5 /HPF (0-5); SQUAMOUS EPITHELIAL CELL,UR FEW Squamous (<= Few)
[2024-03-29 23:26] LABS: ALBUMIN 4.7 g/dL (3.2-5.5); BILIRUBIN,TOTAL 0.3 mg/dL (0.2-1.0); CREATININE 0.7 mg/dL (0.6-1.3); POTASSIUM 3.3 mmol/L (3.5-4.5)
[2024-03-30 00:06] LABS: B. PARAPERTUSSIS- RESP PCR PAN NOT DETECTED; B. PERTUSSIS- RESP PCR PANEL NOT DETECTED; C. PNEUMONIAE- RESP PCR PANEL NOT DETECTED; CORONAVIRUS 229E-RESP PCR NOT DETECTED; CORONAVIRUS HKU1-RESP PCR NOT DETECTED; CORONAVIRUS NL63-RESP PCR NOT DETECTED; CORONAVIRUS OC43-RESP PCR NOT DETECTED; HUMAN METAPNEUMOVIRUS NOT DETECTED; INFLUENZA A- RESP PCR PANEL NOT DETECTED; INFLUENZA B - RESP PCR PANEL NOT DETECTED; M. PNEUMONIAE- RESP PCR PANEL NOT DETECTED; PARAINFLUENZA VIRUS 1 NOT DETECTED; PARAINFLUENZA VIRUS 2 NOT DETECTED; PARAINFLUENZA VIRUS 3 NOT DETECTED; PARAINFLUENZA VIRUS 4 NOT DETECTED; RHINOVIRUS/ENTEROVIRUS NOT DETECTED; RSV- RESP PCR PANEL NOT DETECTED; SARS-CoV-2 -RESP PCR PANEL NOT DETECTED
--- NOTE | 2024-04-01 11:34 | ED Physician Documentation ---
ED Addendum - Addendum Addendum: 04/01/24 11:33 Urine culture reviewed, every urine culture for the last year or so has been positive for E. coli so presume this is asymptomatic colonization.
== END 2024-03-29 23:00 | disposition left against medical advice (07) ==
LOC: ED 20:41
DX: Z53.21 Procedure and treatment not carried out due to patient leaving prior to being seen by health care provider (principal)
CPT/HCPCS: 36415; 80053; 81001; 83690; 84484; 85025; 87086; 87181; 87633; 93005

== ENCOUNTER 2024-04-02 08:00 | Outpatient (CLI) | payer MEDICARE | END 2024-04-02 23:59 | disposition home or self-care (01) | LOC: LAB.S 08:00 | PROVIDERS: ATTEND Registered Nurse | DX: R82.79 Other abnormal findings on microbiological examination of urine (principal) | CPT/HCPCS: 87086 ==

== ENCOUNTER 2024-04-25 11:37 | Outpatient (CLI) | payer MEDICARE | END 2024-04-25 23:59 | disposition EMS.NT | LOC: EMS 11:37 | DX: R20.0 Anesthesia of skin (principal); R45.82 Worries; R41.89 Other symptoms and signs involving cognitive functions and awareness ==

== ENCOUNTER 2024-04-26 15:00 | Outpatient (CLI) | payer MEDICARE | END 2024-04-26 15:01 | disposition critical access hospital (66) | LOC: EMS 15:00 | DX: R41.0 Disorientation, unspecified (principal); R20.2 Paresthesia of skin; R51.9 Headache, unspecified; R26.81 Unsteadiness on feet; F41.9 Anxiety disorder, unspecified | CPT/HCPCS: A0425; A0429 ==

== ENCOUNTER 2024-04-26 15:41 | Emergency (ER) | payer MEDICARE ==
[2024-04-26 16:20] LABS: BILIRUBIN,URINE NEGATIVE (NEGATIVE); GLUCOSE, URINE (UA) NEGATIVE (NEGATIVE); KETONES,URINE (UA) NEGATIVE (NEGATIVE); LEUKOCYTE ESTERASE, URINE NEGATIVE (NEGATIVE); NITRITE,URINE NEGATIVE (NEGATIVE); OCCULT BLOOD,URINE NEGATIVE (NEGATIVE); PH,URINE 5.5 PH (5.0-7.5); PROTEIN,URINE NEGATIVE (NEGATIVE); UROBILINOGEN,URINE 0.2 (NORMAL) E.U./dL (NORMAL)
[2024-04-26 16:22] LABS: CLARITY,URINE CLEAR (CLEAR)
[2024-04-26 16:24] LABS: BASOPHILS # (AUTO) 0.1 10^3/uL (0.0-0.1); BASOPHILS % (AUTO) 0.7 %; EOSINOPHILS # (AUTO) 0.2 10^3/uL (0.0-0.7); EOSINOPHILS % (AUTO) 2.2 %; HCT - HEMATOCRIT 43.8 % (37.0-47.0); HGB - HEMOGLOBIN 14.2 g/dL (12.0-16.0); LYMPHOCYTES # (AUTO) 3.2 10^3/uL (1.5-3.5); LYMPHOCYTES % (AUTO) 33.2 %; MEAN CORPUSCULAR HEMOGLOBIN 26.7 pg (27.0-31.0); MEAN CORPUSCULAR HGB CONC 32.4 g/dL (32.0-36.0); MEAN CORPUSCULAR VOLUME 82.5 fL (81.0-99.0); MEAN PLATELET VOLUME 9.9 fL (7.9-10.8); MONOCYTES # (AUTO) 0.8 10^3/uL (0.0-1.0); MONOCYTES % (AUTO) 8.1 %; NEUTROPHILS # (AUTO) 5.3 10^3/uL (1.5-6.6); NEUTROPHILS % (AUTO) 55.6 %; PLT - PLATELET COUNT 362 10^3/uL (130-450); RED BLOOD COUNT 5.31 10^6/uL (4.20-5.40); RED CELL DISTRIBUTION WIDTH 13.3 % (12.0-15.0); WHITE BLOOD COUNT 9.5 x10^3/uL (4.8-10.8)
[2024-04-26 16:50] LABS: ALBUMIN 4.1 g/dL (3.2-5.5); ALBUMIN/GLOBULIN RATIO 1.5 (1.0-2.2); BILIRUBIN,TOTAL 0.4 mg/dL (0.2-1.0); CALCIUM 9.4 mg/dL (8.5-10.3); CREATININE 0.7 mg/dL (0.6-1.3); POTASSIUM 3.2 mmol/L (3.5-4.5); TOTAL PROTEIN 6.8 g/dL (6.4-8.9)
--- NOTE | 2024-04-26 16:50 | ED Physician Documentation ---
History of Present Illness - Stated complaint Stated Complaint: AMS - Chief complaint Chief Complaint: General - History obtained from History obtained from: Patient, EMS - History of Present Illness Timing: Today Pain level max: 0 Pain level now: 0 - Additonal information Additional information: 73-year-old female has a history of dementia. She states that her went to work today and that she felt panicked at home. She states she did not know what to do so she called the ambulance to bring her here. She states that she did have a mild headache earlier but not now. She also felt dizzy earlier but does not feel dizzy any longer. Does not use a walker or a cane. She is unsure who her doctor is. She states she is not on medications for dementia. No fevers. No chills. No cough or congestion. Patient states that she feels much better after arriving at the hospital and now wants to go home. Review of Systems Unable to obtain: Dementia Cardiac: denies: Chest pain / pressure Respiratory: denies: Cough GI: denies: Vomiting, Diarrhea Skin: denies: Rash Musculoskeletal: denies: Neck pain, Back pain Neurologic: denies: Headache PD PAST MEDICAL HISTORY - Past Medical History Past Medical History: Yes Cardiovascular: Hypertension Neuro: Dementia Musculoskeletal: Fibromyalgia - Past Surgical History Past Surgical History: No - Present Medications Home Medications: Ambulatory Orders Medication Instructions Recorded Confirmed Amitriptyline [Elavil] 10 mg PO DAILY 04/12/15 05/30/23 Valacyclovir HCl [Valacyclovir] 1,000 mg PO TID #20 tablet 04/12/15 05/30/23 cephALEXin [Cephalexin] 500 mg PO TID #20 tablet 04/12/15 05/30/23 predniSONE [Deltasone] 60 mg PO DAILY 10 Days tablet 04/12/15 05/30/23 Tamsulosin [Flomax] 0.4 mg PO DAILY #14 cap 04/18/23 05/30/23 cephALEXin [Keflex] 500 mg PO Q6H #28 cap 10/24/23 - Allergies Allergies/Adverse Reactions: Allergies Allergy/AdvReac Type Severity Reaction Status Date / Time Penicillins Allergy Anaphylaxis Verified 04/26/24 15:53 shellfish derived Allergy Unknown Verified 04/26/24 15:53 - Social History Does the pt smoke?: No Smoking Status: Never smoker Does the pt drink ETOH?: No Does the pt have substance abuse?: No - Immunizations Immunizations are current?: No - POLST Patient has POLST: No PD ED PE NORMAL - Vitals Vital signs reviewed: Yes - General General: Alert and oriented X 3, No acute distress - HEENT HEENT: PERRL, Moist mucous membranes - Neck Neck: Supple, no meningeal sign - Cardiac Cardiac: RRR, Strong equal pulses - Respiratory Respiratory: No respiratory distress, Clear bilaterally - Abdomen Abdomen: Soft, Non tender, Non distended - Derm Derm: Warm and dry - Neuro Neuro: Alert and oriented X 3 - Psych Psych: Normal mood, Normal affect Results - Vitals Vitals: Vital Signs - 24 hr 04/26/24 04/26/24 04/26/24 15:53 16:23 17:30 Temperature 36.8 C Heart Rate 73 69 69 Respiratory 16 18 18 Rate Blood Pressure 154/93 H 142/83 H 145/87 H O2 Saturation 98 100 97 Oxygen O2 Source Room air - Labs Labs: Laboratory Tests 04/26/24 04/26/24 04/26/24 15:45 16:17 16:17 WBC 9.5 RBC 5.31 Hgb 14.2 Hct 43.8 MCV 82.5 MCH 26.7 L MCHC 32.4 RDW 13.3 Plt Count 362 MPV 9.9 Neut # (Auto) 5.3 Lymph # (Auto) 3.2 [place] # (Auto) 0.8 Eos # (Auto) 0.2 Baso # (Auto) 0.1 Absolute Nucleated RBC 0.00 Nucleated RBC % 0.0 Sodium 141 Potassium 3.2 L Chloride 104 Carbon Dioxide 28 Anion Gap 9.0 BUN 16 Creatinine 0.7 Estimated GFR (MDRD) 82 L Glucose 99 Calcium 9.4 Total Bilirubin 0.4 AST 15 ALT 12 Alkaline Phosphatase 67 Total Protein 6.8 Albumin 4.1 Globulin 2.7 Albumin/Globulin Ratio 1.5 Lipase 31 Urine Color LIGHT YELLOW Urine Clarity CLEAR Urine pH 5.5 Ur Specific [place] <=1.005 Urine Protein NEGATIVE Urine Glucose (UA) NEGATIVE Urine Ketones NEGATIVE Urine Occult Blood NEGATIVE Urine Nitrite NEGATIVE Urine Bilirubin NEGATIVE Urine Urobilinogen 0.2 (NORMAL) Ur Leukocyte Esterase NEGATIVE Ur Microscopic Review NOT INDICATED Urine Culture Comments NOT INDICATED PD Medical Decision Making - ED course Complexity details: reviewed results, re-evaluated patient, considered differential, d/w patient ED course: 73-year-old female with a history of dementia. No acute abnormalities on laboratory testing or urinalysis. Asymptomatic in the emergency department. Ambulating without any difficulty. No lightheadedness, dizziness, chest pain. No emergency medical condition at this time. Discussed the case with the patient and her . [place] as well as caregivers. Patient and family counseled regarding signs and symptoms for which I believe and urgent re-evaluation would be necessary. Patient and family with good understanding of and agreement to plan and is comfortable going home at this time This document was made in part using voice recognition software. While efforts are made to proofread this document, sound alike and grammatical errors may occur. Departure - Departure Disposition: 01 Home, Self Care Clinical Impression: Dementia Qualifiers: Dementia type: unspecified type Dementia severity: unspecified severity Dementia behavioral or psychological symptom: unspecified whether behavioral, psychotic, or mood disturbance or anxiety Qualified Code(s): F03.90 - Unspecified dementia, unspecified severity, without behavioral disturbance, psychotic disturbance, mood disturbance, and anxiety Condition: Good Instructions: ED Dementia Caregiver Support Follow-Up: your,doctor in 1 week [Other] Comments: Your testing today does not show any acute abnormalities. Please follow-up with your doctor for further care. You can speak with your doctor about medications for dementia such as Namenda which can help with your memory and help slow the progression of dementia. You have also been given resources for home caregivers and local resources to help with dementia. Forms: PCP List Discharge Date/Time: 04/26/24 18:00
[2024-04-26] MEDS: ACETAMINOPHEN 325 MG TABLET PO STA (16:52)
[2024-04-26 18:13] VITALS: BP 145/87; O2SAT 97
== END 2024-04-26 18:00 | disposition home or self-care (01) ==
LOC: EDUNIT# → ED 15:41
DX: F03.90 Unspecified dementia, unspecified severity, without behavioral disturbance, psychotic disturbance, mood disturbance, and anxiety (principal)
CPT/HCPCS: 36415; 80053; 81003; 83690; 85025; 99283; A9270; 81001; 87086

== ENCOUNTER 2024-05-03 08:24 | Outpatient (CLI) | payer MEDICARE | END 2024-05-03 22:06 | disposition EMS.NT | LOC: EMS 08:24 | DX: R20.0 Anesthesia of skin (principal) ==

== ENCOUNTER 2024-12-02 14:38 | Inpatient (IN) ==
--- NOTE | 2024-12-02 14:55 | ED Physician Documentation ---
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 According to Medics patient has been laying around a lot more than normal attempted to get her to the bathroom but she was unable to because of weakness. By the time arrives he is able to contribute significant more information to the history has been reports around 12:00 today he started to notice that was having increased weakness around 1:00 she attempted to go to the bathroom and he is unsure if she is having left-sided weakness at this point in time but by the time medics arrived patient was having left upper extremity left lower extremity weakness she was nonconversant she is unable to contribute anything to the history with significant left facial droop. 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 Code stroke was activated at this point in time around 1615 p.m. [place] Coma Scale Assess Eye opening: To Voice Verbal response: Incomprehensible Motor response: Abnormal Flexion Total score: 8 Meds/Allgy Home Medications Ambulatory Orders Medication Instructions Recorded Confirmed amitriptyline 10 mg tablet 10 mg PO DAILY 04/12/15 06/08/24 amlodipine 10 mg tablet mg 06/08/24 duloxetine 20 mg capsule,delayed mg PO 06/08/24 release topiramate 25 mg tablet mg 06/08/24 Allergies Allergies Allergy/AdvReac Type Severity Reaction Status Date / Time Penicillins Allergy Anaphylaxis Verified 12/02/24 14:51 shellfish derived Allergy Unknown Verified 12/02/24 14:51 [facility] Active Problems All Active Problems (Updated 12/02/24 @ 22:02 by Margie De Guzman DNP) Atrial fibrillation (Acute) Hypertension (Acute) Acute CVA (cerebrovascular accident) (Acute) Dental decay (Acute) Watters's palsy (Acute) Social History Social History Smoking Status: Never smoker Do you vape?: No Relationship: Guardian Do you feel safe in your home environment?: Yes Suffered physical, verbal, emotional, or financial abuse?: No History of Abuse: No Are you sexually active?: Yes POLST Patient has POLST: No Exam Constitutional abnormal general appearance (disheveled), (chronically ill), (appears older than stated age) and (frail appearing), no apparent distress, abnormal body habitus (thin) and (underweight), limitations noted (altered mental status), (behavioral limitations) and (physical limitations) and level of alertness abnormal (obtun ded) and (confused) HENMT normocephalic and head/scalp atraumatic Eyes PERRL Chest inspection of chest normal Respiratory breath sounds equal bilaterally and normal respiratory effort Cardiovascular heart rate abnormal (Irregularly irregular) Neurology movement abnormality noted (LUE and LLE paralyzation), speech abnormality noted (garbled), coordination abnormality noted (Will not use left upper extremity or left lower extremity) and GCS calculation - Eye opening: To Voice Verbal response: Incomprehensible Motor response: Abnormal Flexion [place] Coma Scale total score: 8 Skin skin color normal Results Vitals Vitals: Vital Signs - 24 hr 12/02/24 14:49 12/02/24 16:51 12/02/24 18:00 Temperature 36 C L Temperature Source Oral Pulse Rate 71 81 85 Respiratory Rate 15 21 17 Blood Pressure 145/90 H 135/76 H 153/89 H O2 Saturation 98 98 98 O2 Source Room air Room air Room air Pain Intensity 0 4 3 12/02/24 19:38 Temperature Temperature Source Pulse Rate 78 Respiratory Rate 16 Blood Pressure 165/84 H O2 Saturation 98 O2 Source Room air Pain Intensity 3 Oxygen O2 Source Room air EKG (time done) 1643: EKG releavant findings:: EKG personally interpreted by author of this note. Relevant findings are: Rate: Rate (enter#) (77) Rhythm: Atrial flutter Wheeler: Normal Intervals: Prolonged QT Ischemia: Normal ST segments Computer interpretation: Agree with computer Labs Labs: Laboratory Tests 12/02/24 12/02/24 14:45 14:55 WBC 11.5 H RBC 5.61 H Hgb 15.2 Hct 46.5 MCV 82.9 MCH 27.1 MCHC 32.7 RDW 14.1 Plt Count 377 MPV 10.3 Neut # (Auto) 10.1 H Lymph # (Auto) 0.8 L Glasscock # (Auto) 0.4 Eos # (Auto) 0.0 Baso # (Auto) 0.0 Absolute Nucleated RBC 0.00 Nucleated RBC % 0.0 PT 11.5 INR 1.0 Sodium 141 Potassium 3.0 L Chloride 100 L Carbon Dioxide 30 Anion Gap 11.0 BUN 23 H Creatinine 1.3 Estimated GFR (MDRD) 40 L Glucose 158 H Lactic Acid 2.9 H Calcium 9.7 Total Bilirubin 0.5 AST 13 ALT 9 L Alkaline Phosphatase 67 Total Protein 6.9 Albumin 4.4 Globulin 2.5 Albumin/Globulin Ratio 1.8 Nasal Adenovirus (PCR) NOT DETECTED Nasal B. parapertussis DNA (PCR) NOT DETECTED Nasal Coronavir 229E PCR NOT DETECTED Nasal Coronavir HKU1 PCR NOT DETECTED Nasal Coronavir NL63 PCR NOT DETECTED Nasal Coronavir OC43 PCR NOT DETECTED Nasal Enterovir/Rhinovir PCR NOT DETECTED Nasal Influenza B PCR NOT DETECTED Nasal Influenza A PCR NOT DETECTED Nasal Parainfluen 1 PCR NOT DETECTED Nasal Parainfluen 2 PCR NOT DETECTED Nasal Parainfluen 3 PCR NOT DETECTED Nasal Parainfluen 4 PCR NOT DETECTED Nasal RSV (PCR) NOT DETECTED Nasal B.pertussis DNA PCR NOT DETECTED Nasal C.pneumoniae (PCR) NOT DETECTED Jayodn Human Metapneumo PCR NOT DETECTED Nasal M.pneumoniae (PCR) NOT DETECTED Nasal SARS-CoV-2 (PCR) NOT DETECTED Rads (name of study) Head CT without: Relevant Findings:: Final report received, Discussed with rads (Dr. Flores), Critical result and EMP independent interpretation of test Interpretation: IMPRESSION: Increased loss of armendariz-white matter differentiation and signal, corresponding to occlusion of the right internal iliac artery seen on same-day CTA. Above discussed with Margie De Guzman DNP at 4:37 PM on 12/02/2024. This study fulfills neurological imaging criteria for inclusion or exclusion of acute stroke therapies based on available published neurological imaging [facility]. Reviewed by: Forrest Flores MD on 12/02/2024 4:38 PM PDT Approved by: Forrest Flores MD on 12/02/2024 4:38 PM PDT ADDENDUM #1 Addendum for purposes of correction: Right internal carotid artery is occluded. Reviewed by: Forrest Flores MD on 12/02/2024 4:[address]: Relevant Findings:: Final report received, Discussed with rads and EMP independent interpretation of test Interpretation: IMPRESSION: Complete occlusion of the right internal carotid artery from the origin extending into the distal segment, with continued occlusion of the right MCA. Above discussed with Margie De Guzman DNP at the time of dictation. The estimate of stenosis included in the report of the imaging study was calculated using the NASCET method Reviewed by: Forrest Flores MD on 12/02/2024 4:40 PM PDT PD Medical Decision Making ED course ED course: 74-year-old female presents emergency department originally for some generalized weakness but upon further evaluation and discussion with patient's family patient is having new onset left-sided weakness. Code stroke was activated, NIH score [address] was complete for further evaluation and it appears that patient has increased loss of armendariz/white matter differentiation signal, corresponding to occlusion to the right internal iliac artery, right internal carotid artery occlusion CT angio head and neck was also complete for further evaluation and there is a complete occlusion of the right internal carotid artery from the origin extending into the distal segment with continued occlusion of the right MCA. Discussed poor prognosis with family, And they did have ultimately patient's family would like her to be admitted for medical management, of new acute stroke. Per their request they want IV fluids and work up for UTI To see if maybe this can help with symptoms. Labs show mild leukocytosis, WBC 11.5 RBC 5.61, hemoglobin 13.2 no significant anemia she has ongoing hypokalemia, potassium 3.0, BUN slightly elevated 23, GFR 40, lactic acid elevated at 2.9. Per family she has not been eating or drinking much at home recently. At this point in time patient will be admitted to hospitalist services Fracisco Nathan working on hospitalizing patient greatly appreciate his collaboration and managing the patient care. Discharge Plan Discharge Patient Disposition: 66 [facility] DC/Xfer Condition: Fair Clinical Impression: Acute CVA (cerebrovascular accident), Hypertension, Atrial fibrillation Interventions: ED Admission Assessment Last Done: 12/02/24 20:28
[2024-12-02 15:10] LABS: BASOPHILS % (AUTO) 0.3 %; EOSINOPHILS % (AUTO) 0.1 %; HCT - HEMATOCRIT 46.5 % (37.0-47.0); HGB - HEMOGLOBIN 15.2 g/dL (12.0-16.0); LYMPHOCYTES # (AUTO) 0.8 10^3/uL (1.5-3.5); LYMPHOCYTES % (AUTO) 7.2 %; MEAN CORPUSCULAR HEMOGLOBIN 27.1 pg (27.0-31.0); MEAN CORPUSCULAR HGB CONC 32.7 g/dL (32.0-36.0); MEAN CORPUSCULAR VOLUME 82.9 fL (81.0-99.0); MEAN PLATELET VOLUME 10.3 fL (7.9-10.8); MONOCYTES # (AUTO) 0.4 10^3/uL (0.0-1.0); MONOCYTES % (AUTO) 3.8 %; NEUTROPHILS # (AUTO) 10.1 10^3/uL (1.5-6.6); NEUTROPHILS % (AUTO) 88.2 %; PLT - PLATELET COUNT 377 10^3/uL (130-450); RED BLOOD COUNT 5.61 10^6/uL (4.20-5.40); RED CELL DISTRIBUTION WIDTH 14.1 % (12.0-15.0); WHITE BLOOD COUNT 11.5 x10^3/uL (4.8-10.8)
[2024-12-02] MEDS: SODIUM CHLORIDE 0.9% 1,000 ML IV STA (15:10)
[2024-12-02 15:19] LABS: ALBUMIN 4.4 g/dL (3.2-5.5); ALBUMIN/GLOBULIN RATIO 1.8 (1.0-2.2); BILIRUBIN,TOTAL 0.5 mg/dL (0.2-1.0); CALCIUM 9.7 mg/dL (8.5-10.3); CREATININE 1.3 mg/dL (0.6-1.3); TOTAL PROTEIN 6.9 g/dL (6.4-8.9)
--- OUTSIDE RECORDS SUMMARY | 2024-12-02 15:50 | EXTERNAL MEDICAL SUMMARY RPT | Continuity of Care Document ---
Author Organization [facility] Address [address] [place] [id number] Phone Results/Labs test date facility value unit notes Result panel 1 NUCLEATED RED BLOOD CELLS AUTO 2024-12-02 14:45 [facility] 0.0 /100wbc (missing) BASOPHILS # (AUTO) 2024-12-02 14:45 [facility] 0.0 10 3/ul (missing) EOSINOPHILS # (AUTO) 2024-12-02 14:45 [facility] 0.0 10 3/ul (missing) NRBC ABSOLUTE COUNT (AUTO) 2024-12-02 14:45 [facility] 0.00 x10 3/ul (missing) MONOCYTES # (AUTO) 2024-12-02 14:45 [facility] 0.4 10 3/ul (missing) BILIRUBIN,TOTAL 2024-12-02 14:45 [facility] 0.5 mg /dl As of March 2023 testing method has changed, this may include reference ranges. LYMPHOCYTES # (AUTO) 2024-12-02 14:45 [facility] 0.8 10 3/ul (missing) CREATININE 2024-12-02 14:45 [facility] 1.3 mg/dl As of March 2023 testing method has changed, this may include reference ranges. ALBUMIN/GLOBULIN RATIO 2024-12-02 14:45 [facility] 1.8 (missing) (missing) NEUTROPHILS # (AUTO) 2024-12-02 14:45 [facility] 10.1 10 3/ul (missing) MEAN PLATELET VOLUME 2024-12-02 14:45 [facility] 10.3 fl (missing) CHLORIDE 2024-12-02 14:45 [facility] 100 mmol/l As of March 2023 testing method has changed, this may include reference ranges. ANION GAP 2024-12-02 14:45 [facility] 11.0 (missing ) (missing) WHITE BLOOD COUNT 2024-12-02 14:45 [facility] 11.5 x10 3/ul (missing) AST ASPARTATE AMINOTRANSFERASE 2024-12-02 14:45 [facility] 13 iu/l As of March 2023 testing method has changed, this may include reference ranges. RED CELL DISTRIBUTION WIDTH 2024-12-02 14:45 [facility] 14.1 % (missing) SODIUM 2024-12-02 14:45 [facility] 141 mmol/l As of March 2023 testing method has changed, this may include reference ranges. HGB - HEMOGLOBIN 2024-12-02 14:45 [facility] 15.2 g /dl (missing) GLUCOSE 2024-12-02 14:45 [facility] 158 mg/dl As of March 2023 testing method has changed, this may include reference ranges. GLOBULIN 2024-12-02 14:45 [facility] 2.5 g/dl (missing) LACTIC ACID, VENOUS 2024-12-02 14:45 [facility] 2.9 mmol/l N As of March 2023 testing method has changed, this may include reference ranges. BUN - BLOOD UREA NITROGEN 2024-12-02 14:45 [facility] 23 mg/dl As of Mar testing method has changed, this may include reference ranges. MEAN CORPUSCULAR HEMOGLOBIN 2024-12-02 14:45 [facility] 27.1 pg (missing) POTASSIUM 2024-12-02 14:45 [facility] 3.0 mmol/l As of March 2023 testing method has changed, this may include reference ranges. CARBON DIOXIDE - CO2 2024-12-02 14:45 [facility] 30 mmol/l As of March 2023 testing method has changed, this may include reference ranges. MEAN CORPUSCULAR HGB CONC 2024-12-02 14:45 [facility] 32.7 g/dl (missing) PLT - PLATELET COUNT 2024-12-02 14:45 [facility] 377 10 3/ul (missing) ALBUMIN 2024-12-02 14:45 [facility] 4.4 g/dl As of March 2023 testing method has changed, this may include reference ranges. GFR - MDRD 2024-12-02 14:45 [facility] 40 (maryellen patten) Social History date description facility
[2024-12-02] MEDS: POTASSIUM CHLORIDE 20 MEQ TABLET PO STA (15:54)
[2024-12-02] MEDS ORDERED: iohexoL-300 100 ML VIAL ONE (16:17)
[2024-12-02 16:32] LABS: B. PARAPERTUSSIS- RESP PCR PAN NOT DETECTED; B. PERTUSSIS- RESP PCR PANEL NOT DETECTED; C. PNEUMONIAE- RESP PCR PANEL NOT DETECTED; CORONAVIRUS 229E-RESP PCR NOT DETECTED; CORONAVIRUS HKU1-RESP PCR NOT DETECTED; CORONAVIRUS NL63-RESP PCR NOT DETECTED; CORONAVIRUS OC43-RESP PCR NOT DETECTED; HUMAN METAPNEUMOVIRUS NOT DETECTED; INFLUENZA A- RESP PCR PANEL NOT DETECTED; INFLUENZA B - RESP PCR PANEL NOT DETECTED; M. PNEUMONIAE- RESP PCR PANEL NOT DETECTED; PARAINFLUENZA VIRUS 1 NOT DETECTED; PARAINFLUENZA VIRUS 2 NOT DETECTED; PARAINFLUENZA VIRUS 4 NOT DETECTED; RHINOVIRUS/ENTEROVIRUS NOT DETECTED; RSV- RESP PCR PANEL NOT DETECTED; SARS-CoV-2 -RESP PCR PANEL NOT DETECTED
[2024-12-02 16:38] LABS: PT - PROTHROMBIN TIME 11.5 secs (9.9-12.6)
--- NOTE | 2024-12-02 16:40 | CT Report ---
PROCEDURE: CT Head W/O Stroke Protocol INDICATIONS: Neuro deficit, acute, stroke suspected TECHNIQUE: Noncontrast 4.5 mm thick angled axial sections acquired from the foramen magnum to the vertex, with c oronal reformats. For radiation dose reduction, the following was used: automated exposure control, adjustment of mA and/or kV according to patient size. COMPARISON: CT 10/24/2023 FINDINGS: Image quality: Excellent. CSF spaces: Basal cisterns are patent. No extra-axial fluid collections. Ventricles are normal in size and shape. Brain: No midline shift. No intracranial masses or hemorrhage. Increased loss of armendariz-white matter differentiation in the right insula. Skull and face: Calvarium and visualized facial bones are intact, without suspicious lesions. Sinuses: Visualized sinuses and mastoids are clear. IMPRESSION: Increased loss of armendariz-white matter differentiation and signal, corresponding to occlusion of the rig ht internal iliac artery seen on same-day CTA. Above discussed with Margie De Guzman DNP at 4:37 PM on 12/02/2024. This study fulfills neurological imaging criteria for inclusion or exclusion of acute stroke therapie s based on available published neurological imaging guidelines. Reviewed by: Forrest Flores MD on 12/02/2024 4:38 PM PDT Approved by: Forrest Flores MD on 12/02/2024 4:38 PM PDT Station ID: [id number]
--- NOTE | 2024-12-02 16:42 | CT Report ---
PROCEDURE: CT Angio Head/Neck INDICATIONS: left facial and left body droop TECHNIQUE: After the administration of intravenous contrast, 1 mm thick sections acquired from the aortic arch t hrough the [place]. 3-dimensional stxwwvc-dsjdufavi-hgcwosfidd (MIP) and/or volume renderin g reformats were acquired of the central intracranial vasculature and neck separately. For radiation dose reduction, the following was used: automated exposure control, adjustment of mA and/or kV acco rding to patient size. CONTRAST: omni 300, 100 COMPARISON: Same day head CT. FINDINGS: Image quality: Diagnostic. HEAD CT: No significant change from same day head CT. HEAD CT ANGIOGRAPHY: Anterior circulation: Occlusion of the right internal carotid artery and right MCA. The flow within the paired anterior cerebral arteries is normal and symmetric. The anterior communicating artery is seen. No aneurysms are seen. Posterior circulation: Visualized portions of the vertebral arteries demonstrate normal caliber, and join to form a normal appearing basilar artery. Flow within the posterior cerebral arteries is norm al and symmetric. No aneurysms are seen. NECK CT ANGIOGRAPHY: Carotid system: The great vessels demonstrate a conventional anatomy as they arise from the aortic a rch. The origins of the common carotid arteries appear patent. The common carotid arteries demonstr ate normal caliber and courses. There is occlusion of the right internal carotid artery from the orig in to the distal segment. Posterior circulation: The origins of the vertebral arteries both appear widely patent. The more garland perior extracranial portions of both vertebral arteries also demonstrate normal courses and calibers. They join to form a normal appearing basilar artery. Soft tissues: Visualized neck soft tissues demonstrate no suspicious abnormalities. Bones: No suspicious bony lesions. Visualized cervical spine appears normally aligned. IMPRESSION: Complete occlusion of the right internal carotid artery from the origin extending into the distal seg ment, with continued occlusion of the right MCA. Above discussed with Margie De Guzman DNP at the time of dictation. The estimate of stenosis included in the report of the imaging study was calculated using the NASCET method Reviewed by: Forrest Flores MD on 12/02/2024 4:40 PM PDT Approved by: Forrest Flores MD on 12/02/2024 4:40 PM PDT Station ID: [id number]
[2024-12-02] MEDS: iohexoL-300 100 ML VIAL IVP ONE (18:32)
--- NOTE | 2024-12-02 20:04 | HISTORY & PHYSICAL EXAMINATION ---
Chief Complaint Chief Complaint Chief Complaint: Left-sided weakness History of Present Illness Admitted From Admitted From:: Home with family History Obtained From History obtained from: Interview with family at bedside Exam Limitations: Severely demented at baseline, now with acute stroke History of Present Illness HPI Comment/Other: 74-year-old female PMH significant for dementia as well as hypertension who has been getting progressively worse and not interacting with her own care came into the emergency department with left-sided weakness. Code stroke was called, and CTA head/neck showed complete occlusion of the right internal carotid artery from the origin extending to the distal segment, with continued occlusion of right MCA. Given her history of dementia and poor prognosis, hospice was consulted for an informational visit. At time of visit, family opted to decline hospice for now and pursue admission and see if there is any improvement with basic medical management before rediscussing potential hospice. Hospitalist was consulted for admission for acute stroke Meds/Allgy Home Medications Ambulatory Orders Medication Instructions Recorded Confirmed amitriptyline 10 mg tablet 10 mg PO DAILY 04/12/15 06/08/24 amlodipine 10 mg tablet mg 06/08/24 duloxetine 20 mg capsule,delayed mg PO 06/08/24 release topiramate 25 mg tablet mg 06/08/24 Allergies Allergies Allergy/AdvReac Type Severity Reaction Status Date / Time Penicillins Allergy Anaphylaxis Verified 12/02/24 14:51 shellfish derived Allergy Unknown Verified 12/02/24 14:51 PF[facility] Active Problems All Active Problems (Updated 12/02/24 @ 20:07 by Fracisco [facility] DNP) Hypertension (Acute) Acute CVA (cerebrovascular accident) (Acute) Dental decay (Acute) Watters's palsy (Acute) Social History Social History Smoking Status: Never smoker Do you vape?: No Relationship: Guardian Do you feel safe in your home environment?: Yes Suffered physical, verbal, emotional, or financial abuse?: No History of Abuse: No Are you sexually active?: Yes POLST Patient has POLST: No Review of Systems Family reports patient has had poor p.o. intake and overall depressed mood. They state her dementia has been getting worse and she has been refusing basic hygiene and food. They report new onset left-sided weakness Status of ROS: unobtainable due to mental status Exam Constitutional Disheveled, Frail-appearing elderly female HENMT normocephalic and head/scalp atraumatic Eyes Eyes favoring the right Neck/C-Spine visual inspection normal Lymph no lymphadenopathy noted Chest inspection of chest normal Respiratory breath sounds equal bilaterally and normal respiratory effort Cardiovascular normal heart rate noted and regular rhythm noted Gastrointestinal abdomen normal to inspection Extremities normal to inspection Neurology Moves right side spontaneously and in response to pain. No movement in left hand in response to pain, some spontaneous twitching in left foot. Nonverbal, not following commands Skin skin color normal Conclusion/Plan Problem List (1) Acute CVA (cerebrovascular accident): Plan: Right ICA complete occlusion on CTA head Aspirin 81 mg p.o. daily, Plavix 75 mg p.o. daily Atorvastatin 40 mg p.o. daily Echocardiogram MRI brain Neurochecks Telemetry (2) Hypertension: Plan: I am holding antihypertensives to allow for permissive hypertension On preliminary review of home meds, it looks like she is on 10 mg of amlodipine daily Plan Admit inpatient med floor DNR Her daughter is her surrogate decision maker/primary contact. Her is also involved in her care, but the family has decided to make the daughter the primary contact Lab Results Lab results reviewed: Yes 12/02/24 14:45 12/02/24 14:45
--- OUTSIDE RECORDS SUMMARY | 2024-12-02 20:10 | EXTERNAL MEDICAL SUMMARY RPT | Continuity of Care Document ---
Author Organization [facility] Address [address] [place] [phone] Phone Results/Labs test date facility value unit [...] (missing) BILIRUBIN,TOTAL 2024-12-02 14:45 [facility] 0.5 mg/dl As of March 2023 testing method has changed, this may include reference ranges. LYMPHOCYTES # (AUTO) 2024-12-02 14:45 [facility] 0.8 10 3/ul (missing) INR 2024-12-02 14:45 [facility] 1.0 (missing) Oral Anticoagulant Indication INR range Venous Thrombosis, P.E. 2.0 - 3.0 Mechanical Valve 2.5 - 3.5 CREATININE 2024-12-02 14:45 [facility] 1.3 mg/dl [...] include reference ranges. ANION GAP 2024-12-02 14:45 [facility] 11.0 (missing) (missing) PT - PROTHROMBIN TIME 2024-12-02 14:45 [facility] 11.5 secs (missing) WHITE BLOOD COUNT 2024-12-02 14:45 [facility] 11.5 x10 3/ul (missing) AST ASPARTATE AMINOTRANSFERASE 2024-12-02 14:45 [facility] 13 iu/l As of March 2023 testing method has changed, this may include reference ranges. RED CELL DISTRIBUTION WIDTH 2024-12-02 14:45 [facility] 14.1 % (missing) SODIUM 2024-12-02 14:45 [facility] 141 mmol/l As of March 2023 testing method has changed, this may include reference ranges. HGB - HEMOGLOBIN 2024-12-02 14:45 [facility] 15.2 g/dl (missing) GLUCOSE 2024-12-02 14:45 [facility] 158 mg/dl As of March 2023 testing method has changed, this may include reference ranges. GLOBULIN 2024-12-02 14:45 [facility] 2.5 g/dl (missing) LACTIC ACID, VENOUS 2024-12-02 14:45 [facility] 2.9 mmol/l N As of March 2023 testing method has changed, this may include reference ranges. BUN - BLOOD UREA NITROGEN 2024-12-02 14:45 [facility] 23 mg/dl As of March 2023 testing method has changed, this may include reference ranges. MEAN CORPUSCULAR HEMOGLOBIN 2024-12-02 14:45 [facility] 27.1 pg (missing) POTASSIUM 2024-12-02 14:45 [facility] 3.0 mmol/l As of March 2023 testing method has changed, this may include reference ranges. CARBON DIOXIDE - CO2 2024-12-02 14:45 [facility] 30 mmol/l As of March 2023 testing method has changed, this may include reference ranges. MEAN CORPUSCULAR HGB CONC 2024-12-02 14:45 [facility] 32.7 g/dl (missing) PLT - PLATELET COUNT 2024-12-02 14:45 [facility] 377 10 3/ul (missing) ALBUMIN 2024-12-02 14:45 [facility] 4.4 g/dl As of March 2023 testing method has changed, this may include reference ranges. GFR - MDRD 2024-12-02 14:45 [facility] 40 (missing) Social History date description facility
[2024-12-02] MEDS: HYDROmorphone 0.5 MG/0.5 ML SYRINGE IVP STA (20:15)
[2024-12-02 20:40] LABS: BILIRUBIN,URINE NEGATIVE (NEGATIVE); GLUCOSE, URINE (UA) NEGATIVE (NEGATIVE); KETONES,URINE (UA) TRACE mg/dL (NEGATIVE); LEUKOCYTE ESTERASE, URINE NEGATIVE (NEGATIVE); NITRITE,URINE NEGATIVE (NEGATIVE); OCCULT BLOOD,URINE NEGATIVE (NEGATIVE); PROTEIN,URINE TRACE mg/dL (NEGATIVE); UROBILINOGEN,URINE 0.2 (NORMAL) E.U./dL (NORMAL)
[2024-12-02 20:41] LABS: CLARITY,URINE CLEAR (CLEAR)
[2024-12-02] MEDS ORDERED: SODIUM CHLORIDE FLUSH 0.9% 10 ML SYRINGE IVP PRN (21:35)
[2024-12-02] MEDS ORDERED: ONDANSETRON ODT 4 MG TABLET TL PRN (21:35)
[2024-12-02] MEDS: NS W/20 MEQ KCL 1,000 ML IV SCH (22:04)
[2024-12-02] MEDS: ATORVASTATIN 40 MG TABLET PO SCH (22:05)
[2024-12-03] MEDS: SODIUM CHLORIDE FLUSH 0.9% 10 ML SYRINGE IVP SCH (00:12)
[2024-12-03 06:38] LABS: BASOPHILS % (AUTO) 0.4 %; EOSINOPHILS % (AUTO) 0.1 %; HCT - HEMATOCRIT 45.3 % (37.0-47.0); HGB - HEMOGLOBIN 14.3 g/dL (12.0-16.0); LYMPHOCYTES % (AUTO) 19.6 %; MEAN CORPUSCULAR HEMOGLOBIN 27.3 pg (27.0-31.0); MEAN CORPUSCULAR HGB CONC 31.6 g/dL (32.0-36.0); MEAN CORPUSCULAR VOLUME 86.5 fL (81.0-99.0); MEAN PLATELET VOLUME 10.2 fL (7.9-10.8); MONOCYTES % (AUTO) 12.2 %; NEUTROPHILS % (AUTO) 67.4 %; PLT - PLATELET COUNT 299 10^3/uL (130-450); RED BLOOD COUNT 5.24 10^6/uL (4.20-5.40); RED CELL DISTRIBUTION WIDTH 14.3 % (12.0-15.0); WHITE BLOOD COUNT 13.4 x10^3/uL (4.8-10.8)
[2024-12-03 06:43] LABS: ABNORMAL LYMPHS % (MANUAL) 0 %; BAND NEUTROPHILS % (MANUAL) 0 %
[2024-12-03] MEDS: ONDANSETRON 4 MG/2 ML VIAL IVP PRN (06:50)
[2024-12-03 06:53] LABS: CALCIUM 8.7 mg/dL (8.5-10.3)
[2024-12-03 06:57] LABS: LYMPHOCYTES % (MANUAL) 15 %; MONOCYTES # (MANUAL) 1.1 10^3/uL (0.0-1.0); NEUTROPHILS # (MANUAL) 10.3 10^3/uL (1.5-6.6)
[2024-12-03 06:58] LABS: DIFFERENTIAL COMMENT MANUAL DIFFERENTIAL; PLATELET ESTIMATE, MANUAL NORMAL (130-450,000) (NORMAL); PLATELET MORPHOLOGY NORMAL APPEARANCE (NORMAL); RBC MORPHOLOGY (MULTIPLE) NORMAL APPEARANCE (NORMAL); WBC MORPHOLOGY (MULTIPLE) NORMAL APPEARANCE (NORMAL)
[2024-12-03] MEDS: cefTRIAXone 1 GM VIAL IVP SCH (08:43)
[2024-12-03] MEDS: ASPIRIN EC 81 MG TABLET PO SCH (08:46)
[2024-12-03] MEDS: CLOPIDOGREL 75 MG TABLET PO SCH (08:46)
[2024-12-03] MEDS: POTASSIUM CHLOR 10 MEQ/100 ML 10 MEQ/100 ML BAG IV SCH (11:05)
--- NOTE | 2024-12-03 12:34 | PHARMACY PROGRESS NOTE ---
Best Possible Medication History Admit Date and Time: 12/02/241956 Home Medications Medication Instructions Recorded Confirmed Type amitriptyline 10 mg tablet 10 mg PO DAILY 04/12/15 12/03/24 History amlodipine 10 mg tablet 10 mg PO ONCE 06/08/24 12/03/24 History duloxetine 60 mg capsule,delayed 60 mg PO ONCE 12/03/24 12/03/24 History release memantine 5 mg tablet 5 mg PO BID 12/03/24 12/03/24 History topiramate 50 mg tablet 50 mg PO BID 12/03/24 12/03/24 History Processed by: Pharmacy Medications reviewed in ED?: No Medication History completed: Yes Patient Interview: Pt unable to participate Secondary Source(s): Other family member and Insurance records BPM Statement: Pharmacist interview with proxy/ and review of [employer] records. As the person ultimately responsible for medication therapy, providers are able to order a medication from an existing home medication list in [facility] via the "Reconcile Routine" prior to Confirmation of that medication by technical sales support manager. Such practice is discouraged except when the physician, in their clinical judgment, deems that a medical need exists for a medication without regard to previous use.
--- NOTE | 2024-12-03 17:02 | PROVIDER PROGRESS NOTE ---
Subjective Prog Note Date Prog Note Date: 12/03/24 Current Medications Current Medications Current Medications: Current Medications Generic Name Dose Route Start Last Admin Trade Name Freq PRN Reason Stop Dose Admin Acetaminophen 650 mg 12/02/24 21:35 Acetaminophen 325 Mg Tablet PO Q4HR PRN Pain 1 to 4, or Fever Aspirin 81 mg 12/03/24 09:00 12/03/24 08:46 Aspirin Ec 81 Mg Tablet PO 81 mg DAILY CARLY Administration Atorvastatin Calcium 40 mg 12/02/24 21:00 12/02/24 22:05 Atorvastatin 40 Mg Tablet PO Not Given QPM CARLY Ceftriaxone Sodium 1 gm 12/03/24 09:00 12/03/24 08:43 Ceftriaxone 1 Gm Vial IVP 1 gm DAILY CARLY Administration Clopidogrel Bisulfate 75 mg 12/03/24 09:00 12/03/24 08:46 Clopidogrel 75 Mg Tablet PO 75 mg DAILY CARLY Administration Enoxaparin Sodium 40 mg 12/04/24 09:00 Enoxaparin 40 Mg/0.4 Ml Syringe SUBQ DAILY CARLY Hydromorphone HCl 0.5 mg 12/02/24 21:35 Hydromorphone 0.5 Mg/0.5 Ml Syringe IVP Q2H PRN Pain 8 to 10 Potassium Chloride/Sodium Chloride 1,000 mls @ 100 mls/hr 12/02/24 21:35 12/03/24 08:43 Normal Saline 0.9% W/20 Meq Kcl IV 100 mls/hr .Q10H CARLY Administration Ondansetron HCl 4 mg 12/02/24 21:35 12/03/24 06:50 Ondansetron 4 Mg/2 Ml Vial IVP 4 mg Q6HR PRN Administration Nausea / Vomiting Ondansetron HCl 4 mg 12/02/24 21:35 Ondansetron Odt 4 Mg Tablet TL Q6HR PRN Nausea / Vomiting Sodium Chloride 10 ml 12/02/24 21:35 Sodium Chloride Flush 0.9% 10 Ml Syringe IVP PRN PRN NEEDED PER PROVIDER ORDERS Sodium Chloride 10 ml 12/03/24 01:00 12/03/24 08:43 Sodium Chloride Flush 0.9% 10 Ml Syringe IVP 10 ml 0100,0900,1700 CARLY Administration Objective Vital Signs/Intake & Output Reviewed Vital Signs: Yes Vital Signs: Vital Signs x48h Temp Pulse Resp BP Pulse Ox 12/03/24 16:00 36.5 C 71 16 115/64 97 Intake & Output: Intake & Output 11/30/24 12/01/24 12/02/24 12/03/24 23:59 23:59 23:59 23:59 Intake Total 1000 / 1000 1387 / 1387 Output Total 395 / 395 500 / 500 Balance 605 / 605 887 / 887 Weight (kg) 57.3 kg Objective General Appearance: positive Other (Resting comfortably, occasionally moving right hand) Eyes Bilateral: positive Other (Deviated to the right) ENT: positive ENT inspection nml Neck: positive Nml inspection Respiratory: positive Chest non-tender and No respiratory distress Cardiovascular: positive Regular rate & rhythm Abdomen: positive Non-tender Skin: positive Color nml Extremities: positive Non-tender Neurologic/Psychiatric: positive Oriented x3 Lab Results 12/03/24 06:09 12/03/24 06:09 Other Labs: Lab Results x24hrs 12/03/24 12/02/24 Range/Units 06:09 20:25 WBC 13.4 H (4.8-10.8) x10^3/uL RBC 5.24 (4.20-5.40) 10^6/uL Hgb 14.3 (12.0-16.0) g/dL Hct 45.3 (37.0-47.0) % MCV 86.5 (81.0-99.0) fL MCH 27.3 (27.0-31.0) pg MCHC 31.6 L (32.0-36.0) g/dL RDW 14.3 (12.0-15.0) % Plt Count 299 (130-450) 10^3/uL MPV 10.2 (7.9-10.8) fL Neut # (Auto) Not Reportable Lymph # (Auto) Not Reportable [place] # (Auto) Not Reportable Eos # (Auto) Not Reportable Baso # (Auto) Not Reportable Absolute Nucleated RBC Not Reportable Total Counted 100 Band Neuts % (Manual) 0 (0 - 10) % Abnorm Lymph % (Manual) 0 % Nucleated RBC % Not Reportable Neutrophils # (Manual) 10.3 H (1.5-6.6) 10^3/uL Lymphocytes # (Manual) 2.0 (1.5-3.5) 10^3/uL Monocytes # (Manual) 1.1 H (0.0-1.0) 10^3/uL Eosinophils # (Manual) 0.0 (0-0.7) 10^3/uL Basophils # (Manual) 0.0 (0-0.1) 10^3/uL Differential Comment MANUAL DIFFERENTIAL WBC Morphology NORMAL APPEARANCE (NORMAL) Platelet Estimate NORMAL (130-450,000) (NORMAL) Platelet Morphology NORMAL APPEARANCE (NORMAL) RBC Morph Micro Appear NORMAL APPEARANCE (NORMAL) Sodium 141 (135-145) mmol/L Potassium 3.0 L (3.5-4.5) mmol/L Chloride 107 (101-111) mmol/L Carbon Dioxide 23 (21-32) mmol/L Anion Gap 11.0 (6-13) BUN 18 (6-20) mg/dL Creatinine 1.0 (0.6-1.3) mg/dL Estimated GFR (MDRD) 54 L (>89) Glucose 112 H (74-104) mg/dL Calcium 8.7 (8.5-10.3) mg/dL Urine Color YELLOW Urine Clarity CLEAR (CLEAR) Urine pH 6.0 (5.0-7.5) PH Ur Specific [place]aine 1.025 (1.002-1.030) Urine Protein TRACE (NEGATIVE) mg/dL Urine Glucose (UA) NEGATIVE (NEGATIVE) mg/dL Urine Ketones TRACE (NEGATIVE) mg/dL Urine Occult Blood NEGATIVE (NEGATIVE) Urine Nitrite NEGATIVE (NEGATIVE) Urine Bilirubin NEGATIVE (NEGATIVE) Urine Urobilinogen 0.2 (NORMAL) (NORMAL) E.U./dL Ur Leukocyte Esterase NEGATIVE (NEGATIVE) Ur Microscopic Review NOT INDICATED Urine Culture Comments NOT INDICATED Assessment/Plan Problem List (1) Acute CVA (cerebrovascular accident): Impression: She has had some slight improvement in her mentation. She was able to tell me her name. She passed a nursing bedside swallow eval, so I am advancing her diet cautiously to Mechanical soft ST consult, not available on weekend PT/OT consult, not available on weekend MRI declined by family member at bedside Echo Concern was raised on admission for UTI. UA was negative, discontinuing Rocephin (2) Hypertension: Impression: BP 115/64 without any home blood pressure meds
[2024-12-03] MEDS: ACETAMINOPHEN 325 MG TABLET PO PRN (19:28)
[2024-12-04 05:33] LABS: BASOPHILS # (AUTO) 0.1 10^3/uL (0.0-0.1); BASOPHILS % (AUTO) 0.7 %; EOSINOPHILS # (AUTO) 0.2 10^3/uL (0.0-0.7); EOSINOPHILS % (AUTO) 1.5 %; HGB - HEMOGLOBIN 12.7 g/dL (12.0-16.0); LYMPHOCYTES # (AUTO) 2.4 10^3/uL (1.5-3.5); LYMPHOCYTES % (AUTO) 21.5 %; MEAN CORPUSCULAR HEMOGLOBIN 26.9 pg (27.0-31.0); MEAN CORPUSCULAR HGB CONC 32.6 g/dL (32.0-36.0); MEAN CORPUSCULAR VOLUME 82.6 fL (81.0-99.0); MEAN PLATELET VOLUME 9.9 fL (7.9-10.8); MONOCYTES % (AUTO) 8.9 %; NEUTROPHILS # (AUTO) 7.4 10^3/uL (1.5-6.6); PLT - PLATELET COUNT 262 10^3/uL (130-450); RED BLOOD COUNT 4.72 10^6/uL (4.20-5.40); RED CELL DISTRIBUTION WIDTH 14.2 % (12.0-15.0)
[2024-12-04 05:46] LABS: CALCIUM 8.1 mg/dL (8.5-10.3); CREATININE 0.9 mg/dL (0.6-1.3); POTASSIUM 3.3 mmol/L (3.5-4.5)
[2024-12-04] MEDS: ENOXAPARIN 40 MG/0.4 ML SYRINGE SUBQ SCH (09:07)
[2024-12-04] MEDS: POTASSIUM CHLOR 10 MEQ/100 ML 10 MEQ/100 ML BAG IV SCH (12:03)
[2024-12-04] MEDS: HYDROmorphone 0.5 MG/0.5 ML SYRINGE IVP PRN (12:24)
--- NOTE | 2024-12-04 13:23 | PROVIDER PROGRESS NOTE ---
Subjective Prog Note Date Prog Note Date: 12/04/24 Subjective Pt reports feeling: No change Current Medications Current Medications Current Medications: Current Medications Generic Name Dose Route Start Last Admin Trade Name Freq PRN Reason Stop Dose Admin Acetaminophen 650 mg 12/02/24 21:35 12/04/24 12:03 Acetaminophen 325 Mg Tablet PO 650 mg Q4HR PRN Administration Pain 1 to 4, or Fever Aspirin 81 mg 12/03/24 09:00 12/04/24 09:07 Aspirin Ec 81 Mg Tablet PO 81 mg DAILY CARLY Administration Atorvastatin Calcium 40 mg 12/02/24 21:00 12/03/24 20:45 Atorvastatin 40 Mg Tablet PO 40 mg QPM CARLY Administration Clopidogrel Bisulfate 75 mg 12/03/24 09:00 12/04/24 09:07 Clopidogrel 75 Mg Tablet PO 75 mg DAILY CARLY Administration Enoxaparin Sodium 40 mg 12/04/24 09:00 12/04/24 09:07 Enoxaparin 40 Mg/0.4 Ml Syringe SUBQ 40 mg DAILY CARLY Administration Hydromorphone HCl 0.5 mg 12/02/24 21:35 12/04/24 12:24 Hydromorphone 0.5 Mg/0.5 Ml Syringe IVP 0.5 mg Q2H PRN Administration Pain 8 to 10 Potassium Chloride/Sodium Chloride 1,000 mls @ 100 mls/hr 12/02/24 21:35 12/04/24 04:25 Normal Saline 0.9% W/20 Meq Kcl IV 100 mls/hr .Q10H CARLY Administration Potassium Chloride 10 meq in 100 mls @ 100 mls/hr 12/04/24 11:00 12/04/24 12:25 Potassium Chloride IV 12/04/24 14:59 75 mls/hr Q1H CARLY Infusion Ondansetron HCl 4 mg 12/02/24 21:35 12/03/24 06:50 Ondansetron 4 Mg/2 Ml Vial IVP 4 mg Q6HR PRN Administration Nausea / Vomiting Ondansetron HCl 4 mg 12/02/24 21:35 Ondansetron Odt 4 Mg Tablet TL Q6HR PRN Nausea / Vomiting Sodium Chloride 10 ml 12/02/24 21:35 Sodium Chloride Flush 0.9% 10 Ml Syringe IVP PRN PRN NEEDED PER PROVIDER ORDERS Sodium Chloride 10 ml 12/03/24 01:00 12/04/24 09:07 Sodium Chloride Flush 0.9% 10 Ml Syringe IVP 10 ml 0100,0900,1700 CARLY Administration Objective Vital Signs/Intake & Output Reviewed Vital Signs: Yes Vital Signs: Vital Signs x48h Temp Pulse Resp BP Pulse Ox 12/04/24 07:53 36.6 C 71 20 145/76 H 97 Intake & Output: Intake & Output 12/01/24 12/02/24 12/03/24 12/04/24 23:59 23:59 23:59 23:59 Intake Total 1000 / 1000 2587 / 2587 1195 / 1195 Output Total 395 / 395 700 / 700 425 / 425 Balance 605 / 605 1887 / 1887 770 / 770 Weight (kg) 57.3 kg Objective General Appearance: positive Other (Resting comfortably, occasionally moving right hand) Eyes Bilateral: positive Other (Deviated to the right) ENT: positive ENT inspection nml Neck: positive Nml inspection Respiratory: positive Chest non-tender and No respiratory distress Cardiovascular: positive Regular rate & rhythm Abdomen: positive Non-tender Skin: positive Color nml Extremities: positive Non-tender Neurologic/Psychiatric: positive Other (Oriented x 1. Movement on right side, no movement on left) Lab Results 12/04/24 05:19 12/04/24 05:19 Other Labs: Lab Results x24hrs 12/04/24 Range/Units 05:19 WBC 11.0 H (4.8-10.8) x10^3/uL RBC 4.72 (4.20-5.40) 10^6/uL Hgb 12.7 (12.0-16.0) g/dL Hct 39.0 (37.0-47.0) % MCV 82.6 (81.0-99.0) fL MCH 26.9 L (27.0-31.0) pg MCHC 32.6 (32.0-36.0) g/dL RDW 14.2 (12.0-15.0) % Plt Count 262 (130-450) 10^3/uL MPV 9.9 (7.9-10.8) fL Neut # (Auto) 7.4 H (1.5-6.6) 10^3/uL Lymph # (Auto) 2.4 (1.5-3.5) 10^3/uL [place] # (Auto) 1.0 (0.0-1.0) 10^3/uL Eos # (Auto) 0.2 (0.0-0.7) 10^3/uL Baso # (Auto) 0.1 (0.0-0.1) 10^3/uL Absolute Nucleated RBC 0.00 x10^3/uL Nucleated RBC % 0.0 /100WBC Sodium 141 (135-145) mmol/L Potassium 3.3 L (3.5-4.5) mmol/L Chloride 113 H (101-111) mmol/L Carbon Dioxide 22 (21-32) mmol/L Anion Gap 6.0 (6-13) BUN 13 (6-20) mg/dL Creatinine 0.9 (0.6-1.3) mg/dL Estimated GFR (MDRD) 61 L (>89) Glucose 102 (74-104) mg/dL Calcium 8.1 L (8.5-10.3) mg/dL Assessment/Plan Problem List (1) Acute CVA (cerebrovascular accident): Impression: She has had some slight improvement in her mentation. She was able to tell me her name. She passed a nursing bedside swallow eval, so I am advancing her diet cautiously to Mechanical soft ST consult, not available on weekend PT/OT consult, not available on weekend MRI declined by family member at bedside Echo Concern was raised on admission for UTI. UA was negative, discontinuing Rocephin 12/04/2024: Since last discussion, family has opted to continue stroke workup. MRI, echo has been ordered. Physical therapy saw her today, and reports no movement or sensation on the left. I am continuing her hydromorphone 0.5 mg as needed for pain. She also continues to have low potassium levels. I am continuing her NS with 20 of K as well as adding 40 mEq of K riders (2) Hypertension: Impression: BP 115/64 without any home blood pressure meds
--- NOTE | 2024-12-04 14:09 | PT Plan of Care ---
PT Inpatient Plan of Care DIAGNOSIS Diagnosis: CVA Referring Provider: Fracisco Nathan Patient Status: Inpatient CHIEF COMPLAINT Chief Complaint: weakness and L shoulder/brachium pain with PROM Onset of Chief Complaint: MIDDLE CARD TENDER on 12/02/24 BALANCE/FUNCTIONAL RESULTS Sitting Balance: Poor Standing Balance: Unable Reeves Balance Evaluation Total Score: 0 Reeves Balance Test Interpretation: High Fall Risk ASSESSMENT Assessment: The pt is a 74 y/o F who arrived to the ED on 12/02/24, she was hospitalized with a significant CVA. At baseline she has dementia and requires IADL assist from her spouse, please see chart for complete medical hx. The pt was received resting comfortably supine in bed with multiple family members present. She presented today with dysarthria, profound L sided deficits including grossly insensate along entire L side, flaccid L UE and LE, positive L Babinski, decreased activity tolerance, L sided inattention with visual field loss, and poor sitting balance. Due to the severity of her deficits she was unable to sit EOB unsupported and unsafe to stand or ambulate. At this time recommend continued skilled PT intervention while in the acute setting and DC to SNF for further rehab once pt medically stable. This plan was discussed with the pt and he was in agreement with this. At the end of the session the pt was supine in bed with call light in reach and all needs met while family was in the room. RN and DNP updated on pt's status and DC rec. PATIENT/FAMILY GOALS Patient/Family Goals: to see if the pt begins to have any functional return GOALS Improve supine to sit to:: Maximum Assist Improve sit to supine to:: Maximum Assist Improve Sitting Balance to:: Fair PLAN Frequency: 1-2x/day Duration: Until discharge DISCHARGE RECOMMENDATIONS Discharge Location: Detention Facility Other Discharge Equipment: DME needs unclear at this time Transport Needs at Discharge: B.L.S
[2024-12-05 05:19] LABS: BASOPHILS # (AUTO) 0.1 10^3/uL (0.0-0.1); BASOPHILS % (AUTO) 0.7 %; EOSINOPHILS # (AUTO) 0.3 10^3/uL (0.0-0.7); EOSINOPHILS % (AUTO) 3.3 %; HCT - HEMATOCRIT 35.3 % (37.0-47.0); HGB - HEMOGLOBIN 11.9 g/dL (12.0-16.0); LYMPHOCYTES # (AUTO) 2.2 10^3/uL (1.5-3.5); LYMPHOCYTES % (AUTO) 22.9 %; MEAN CORPUSCULAR HGB CONC 33.7 g/dL (32.0-36.0); MONOCYTES % (AUTO) 9.9 %; NEUTROPHILS % (AUTO) 62.8 %; PLT - PLATELET COUNT 250 10^3/uL (130-450); RED BLOOD COUNT 4.41 10^6/uL (4.20-5.40); WHITE BLOOD COUNT 9.6 x10^3/uL (4.8-10.8)
[2024-12-05 05:31] LABS: CREATININE 0.8 mg/dL (0.6-1.3); POTASSIUM 3.6 mmol/L (3.5-4.5)
[2024-12-05 08:53] VITALS: BP 144/78; TEMP 97.5; O2SAT 98
--- NOTE | 2024-12-05 12:56 | MRI Report ---
PROCEDURE: MRI Brain WO INDICATIONS: Stroke workup TECHNIQUE: Multiplanar multisequential MR images of the brain were obtained without contrast COMPARISON: CT/CTA 12/02/2024 FINDINGS: CSF Spaces: Basal cisterns are patent. No extra-axial fluid collections. Ventricles are normal in size and shape. Brain: Restricted diffusion and edema noted proximal two thirds of the right MCA territory including the lentiform nucleus. No midline shift. Underlying moderate atrophy and chronic ischemic change pre sent. Bilateral basal ganglia mineralization noted on the susceptibility sequence. Skull and face: Calvarium has normal marrow signal. Orbits appear normal. Sinuses: Sinuses and mastoids are clear. IMPRESSION: Acute to subacute right MCA infarct with edema but no midline shift. Mineralization of both basal ganglia. Underlying right and small microhemorrhage be difficult to excl ude. Reviewed by: Bruno Ennis MD on 12/05/2024 11:55 AM LEE Approved by: Bruno Ennis MD on 12/05/2024 11:55 AM LEE Station ID: [id number]
--- NOTE | 2024-12-05 16:28 | Discharge Summary ---
Discharge Summary Admit Date: 12/02/24 Discharge Date: 12/05/24 Discharging Provider: Fracisco Nathan NP Primary Care Provider: Angela Roberts Code Status: Do Not Attempt Resuscitation DIAGNOSES Admission Diagnoses: Acute CVA Hypertension Discharge Diagnoses with Status of Each Condition: Acute CVAdischarging on hospice Hypertensionchronic HPI History of Present Illness: 74-year-old female PMH significant for dementia as well as hypertension who has been getting progressively worse and not interacting with her own care came into the emergency department with left-sided weakness. Code stroke was called, and CTA head/neck showed complete occlusion of the right internal carotid artery from the origin extending to the distal segment, with continued occlusion of right MCA. Given her history of dementia and poor prognosis, hospice was consulted for an informational visit. At time of visit, family opted to decline hospice for now and pursue admission and see if there is any improvement with basic medical management before rediscussing potential hospice. Hospitalist was consulted for admission for acute stroke HOSPITAL COURSE Hospital Course: She was admitted into the hospital to complete her stroke workup and attempt medical management. MRI was performed which showed right MCA stroke. She was evaluated by physical therapy, who recommended SNF at discharge if she did not go hospice. Family continue to have discussion with hospice, and decided to go comfort measures/home on hospice today. I have ordered a few days worth of comfort meds for her and she is going home to establish herself with hospice services ALLERGIES Allergies Allergy/AdvReac Type Severity Reaction Status Date / Time Penicillins Allergy Anaphylaxis Verified 12/02/24 14:51 shellfish derived Allergy Unknown Verified 12/02/24 14:51 MEDICATIONS Ambulatory Orders Medication Instructions Recorded Confirmed amitriptyline 10 mg tablet 10 mg PO DAILY 04/12/15 12/03/24 amlodipine 10 mg tablet 10 mg PO ONCE 06/08/24 12/03/24 duloxetine 60 mg capsule,delayed 60 mg PO ONCE 12/03/24 12/03/24 release memantine 5 mg tablet 5 mg PO BID 12/03/24 12/03/24 topiramate 50 mg tablet 50 mg PO BID 12/03/24 12/03/24 bisacodyl 10 mg rectal suppository 10 mg IA DAILY PRN Constipation #3 12/05/24 (Dulcolax (bisacodyl)) ea lorazepam 0.5 mg tablet (Ativan) 0.5 mg PO Q6H PRN Anxiety #10 tabs 12/05/24 morphine concentrate 100 mg/5 mL 5 mg (0.25 mL) PO Q4H PRN pain or 12/05/24 (20 mg/mL) oral solution breathlessness #30 mL olanzapine 5 mg disintegrating 5 mg PO DAILY PRN Agitation, 12/05/24 tablet (Zyprexa Zydis) nausea and vomiting #10 tabs sennosides 8.6 mg tablet (senna) 8.6 mg PO BID PRN Constipation #10 12/05/24 tabs PHYSICAL EXAM AT DISCHARGE General Appearance: positive No acute distress Eyes Bilateral: negative Normal inspection (Deviated to the right) ENT: positive ENT inspection nml Neck: positive Nml inspection Respiratory: positive Chest non-tender Cardiovascular: positive Regular rate & rhythm Peripheral Pulses: positive 2+ Abdomen: positive Non-tender Skin: positive Color nml Extremities: positive Non-tender Neurologic/Psychiatric: positive Other (Oriented x 1. Movement on the right side, no movement on the left. No response to painful stimulus on the left) LABS 12/05/24 05:06 12/05/24 05:06 DIAGNOSTIC IMAGING Diagnostic Imaging Results: Final report reviewed Diagnostic Imaging Results Comments: MRI brain as above FOLLOW UP Follow Up: With hospice services TIME SPENT Time Spent in Discharge (Minutes): 40 Discharge Plan Discharge Patient Disposition: 50 Hospice/Home DC/Xfer Condition: Fair Medically Cleared Date:: 12/05/24 Prescriptions: New sennosides [senna] 8.6 mg Tablet 8.6 mg PO BID PRN (Reason: Constipation) Qty: 10 0RF Rx Instructions: Take one tablet, by mouth, twice a day as needed for constipation. morphine concentrate 100 mg/5 mL (20 mg/mL) Solution 5 mg PO Q4H PRN (Reason: pain or breathlessness) Qty: 30 0RF Rx Instructions: Take 0.25 ml (equal to 5 mg) by mouth, or under the tongue, every 4 hours as needed for moderate to severe pain. lorazepam [Ativan] 0.5 mg Tablet 0.5 mg PO Q6H PRN (Reason: Anxiety) Qty: 10 0RF Rx Instructions: Take one tablet, by mouth, every 6 hours as needed for anxiety. bisacodyl [Dulcolax (bisacodyl)] 10 mg Suppository 10 mg IA DAILY PRN (Reason: Constipation) Qty: 3 0RF Rx Instructions: Unwrap and insert one suppository rectally daily, as needed for constipation. olanzapine [Zyprexa Zydis] 5 mg Tablet,Disintegrating 5 mg PO DAILY PRN (Reason: Agitation, nausea and vomiting) Qty: 10 0RF Rx Instructions: Dissolve one tablet, in mouth, twice daily as needed for agitation or nausea and/or vomiting. Continued amitriptyline 10 MG tablet 10 mg PO DAILY amlodipine 10 mg tablet 10 mg PO ONCE Patient Comments: take 1 tablet by mouth once daily memantine 5 mg tablet 5 mg PO BID Patient Comments: TAKE ONE TABLET BY MOUTH TWICE DAILY topiramate 50 mg tablet 50 mg PO BID Patient Comments: TAKE ONE TABLET BY MOUTH TWICE DAILY duloxetine 60 mg capsule,delayed release(DR/EC) 60 mg PO ONCE Patient Comments: TAKE ONE CAPSULE BY MOUTH ONE TIME DAILY . do not chew or crush Activity Restrictions: Activity as Tolerated Diet: Soft Health Concerns: You came into the hospital because you had a stroke. CT on admission showed a right internal carotid artery occlusion also not a stroke. You are brought into the hospital and evaluated by physical therapy who noted continued profound left-sided deficits. Hospice was consulted, and we are arranging for you to go home on hospice. MRI was performed, results not available yet. Given the degree of damage seen on CT scan, I feel there is a very poor prognosis regarding return to prior function. I am sending you home with medications to help with comfort such as morphine, Zyprexa, Ativan, stool softeners. Please feel free to reach out to the hospice team with any needs that she may have Print Language: Ugandan Patient Instructions: Hospice Stand Alone Forms: PCP List Follow-up Care: ANGELA ROBERTS MD [Primary Care Provider] -
== END 2024-12-05 13:52 | disposition hospice, home (50) | DRG 64 ==
LOC: ED 14:38 → MS2 19:57
PROVIDERS: ADMIT Nurse Practitioner Acute Care; ATTEND Nurse Practitioner Acute Care